=== PATIENT | female | born 1990 | race Caucasian/White ===

== ENCOUNTER 2016-05-20 11:00 | Emergency (ER) | payer OTHER ==
--- NOTE | 2016-05-20 12:27 | UC ---
Eye Complaint HPI - HPI Summary HPI Summary: R eye itching and drainage starting yesterday, minimal L eye itching today. Had drainage upon waking this morning. Denies any grinding, welding, or overhead work. No photophobia, pain, or FB sensation. Denies hx of eye surgery. - History of Current Complaint Chief Complaint: UCEye Stated Complaint: RT EYE COMPLAINT Time Seen by Provider: 05/20/16 12:03 Hx Obtained From: Patient Hx Last Menstrual Period: 05/19/16 ?: No Onset/Duration: Gradual Onset, Lasting Days Timing: Constant Severity Initially: Mild Severity Currently: Mild Location of Injury: Conjunctiva Character: Dull Aggravating Factor(s): Nothing Alleviating Factor(s): Nothing Associated Signs And Symptoms: Positive: Drainage (Clear), Drainage (Purulent). Negative: Vision Impairment Bilateral - Allergies/Home Medications Allergies/Adverse Reactions: Allergies Allergy/AdvReac Type Severity Reaction Status Date / Time seasonal Allergy Eyes Uncoded 05/20/16 11:33 Itchy/Swollen/Red/Watery Home Medications: Home Medications Desvenlafaxine (NF) [Pristiq (NF)] 50 mg PO BEDTIME 05/20/16 [History Confirmed 05/20/16] Zolpidem TAB* [Ambien*] 10 mg PO BEDTIME PRN 05/20/16 [History Confirmed ] PMH/Surg Hx/FS Hx/Imm Hx Endocrine History Of: Reports: Diabetes, Thyroid Disease Cardiovascular History Of: Reports: Hypertension Denies: Cardiac Disorders Respiratory History Of: Reports: Asthma Denies: COPD GI/ History Of: Reports: Gall Bladder Disease Denies: Ulcer Neurological History Of: Reports: Seizures Psychological History Of: Reports: Depression - Bipolar - Surgical History Surgical History: Yes Surgery Procedure, Year, and Place: PE Tubes as a child and 07/2015. Cholecystectomy, 2008, [facility] - Family History Known Family History: Positive: Unknown - PT IS ADOPTED UNSURE OF HER BIOLOGIC PARENTS MEDICAL HISTORY - Social History Occupation: Unemployed Lives: With Family Alcohol Use: None Substance Use Type: None Smoking Status (MU): Never Smoked Tobacco Review of Systems Constitutional: Negative Skin: Negative Eyes: Eye Redness ENT: Negative Respiratory: Negative Cardiovascular: Negative Gastrointestinal: Negative Genitourinary: Negative Motor: Negative Neurovascular: Negative Musculoskeletal: Negative Neurological: Negative Psychological: Negative All Other Systems Reviewed And Are Negative: Yes Physical Exam Triage Information Reviewed: Yes Appearance: Well-Appearing, No Pain Distress, Obese Vital Signs: Initial Vital Signs Temp 97.6 F 05/20/16 11:36 Pulse 77 05/20/16 11:36 Resp 18 05/20/16 11:36 BP 143/70 05/20/16 11:36 Pulse Ox 97 05/20/16 11:36 Vital Signs Reviewed: Yes Eye Exam: Other - PERRL Eyes: Positive: Conjunctiva Inflamed - R, mild ENT Exam: Normal ENT: Positive: Normal ENT inspection, Hearing grossly normal, Pharynx normal, TMs normal Dental Exam: Normal Neck exam: Normal Neck: Positive: Supple, Nontender, No Lymphadenopathy Respiratory Exam: Normal Respiratory: Positive: Chest non-tender, Lungs clear, Normal breath sounds, No respiratory distress, No accessory muscle use Cardiovascular Exam: Normal Cardiovascular: Positive: RRR, No Murmur Neurological Exam: Normal Neurological: Positive: Alert, Muscle Tone Normal Psychological Exam: Normal Skin Exam: Normal Eye Complaint Course/Dx - Differential Dx/Diagnosis Provider Diagnoses: bilat conjunctivitis Discharge - Discharge Plan Condition: Stable Disposition: HOME Prescriptions: Ciprofloxacin 0.3% OPTH.JELENA* [Cipro 0.3% Opth*] 2 drop BOTH EYES QID #10 ml Patient Education Materials: Conjunctivitis (ED) Referrals: Ankur Newsome [Primary Care Provider] - If Needed
[2016-05-20 13:57] VITALS: BP 153/87
== END 2016-05-20 12:40 | disposition home or self-care (01) ==
LOC: UCCORT 11:00
DX: H10.33 Unspecified acute conjunctivitis, bilateral (principal); E66.9 Obesity, unspecified
CPT/HCPCS: 99212; G0463

== ENCOUNTER 2016-07-23 06:15 | Emergency (ER) | payer OTHER ==
[2016-07-23 07:45] VITALS: BP 147/89
--- NOTE | 2016-07-25 18:22 | ED ---
Julio Richards Matthew, scribed for Gerson Keating MD on 07/23/16 at 0805 . Respiratory - HPI Summary HPI Summary: A 25 y/o female presents to the ED with a cough for the past 3 days. Associated symptoms include rhinorrhea - yellow sputum, sore throat, hoarse voice, and ear ache. The patient denies fever. She has a Hx of bronchitis. The patient babysat all last week. PMHx includes asthma. No Hx of smoking. The patient is not taking her diabetic or thyroid medications, because she states that she forgets. She's also taking control, which she started a week and half ago. - History of Current Complaint Chief Complaint: EDUpperRespComplaint Stated Complaint: VAG BLEED Time Seen by Provider: 07/23/16 07:18 Hx Obtained From: Patient Onset/Duration: Gradual Onset, Lasting Days, Still Present Timing: Constant Initial Severity: Mild Current Severity: Mild Pain Intensity: 0 Character: Cough (Productive) Sputum Color: Yellow Associated Signs and Symptoms: Nasal Congestion, Hoarseness - Allergy/Home Medications Allergies/Adverse Reactions: Allergies Allergy/AdvReac Type Severity Reaction Status Date / Time seasonal Allergy Eyes Uncoded 05/20/16 11:33 Itchy/Swollen/Red/Watery PMH/Surg Hx/FS Hx/Imm Hx Endocrine/Hematology History: Reports: Hx Diabetes, Hx Thyroid Disease Cardiovascular History: Reports: Hx Hypertension Respiratory History: Reports: Hx Asthma, Hx Sleep Apnea Denies: Hx Chronic Obstructive Pulmonary Disease (COPD) GI History: Reports: Hx Gall Bladder Disease Denies: Hx Ulcer Neurological History: Reports: Hx Seizures Psychiatric History: Reports: Hx Depression - Bipolar, Hx Community Mental Health Tx - Surgical History Surgery Procedure, Year, and Place: PE Tubes as a child and 07/2015. [place] [facility] [place] Disease History: No Infectious Disease History: Denies: Hx Hepatitis, Hx Human Immunodeficiency Virus (HIV), History Other Infectious Disease, Traveled Outside the [place] in Last 30 Days - Family History Known Family History: Positive: Unknown - PT IS ADOPTED UNSURE OF HER BIOLOGIC PARENTS MEDICAL HISTORY - Social History Alcohol Use: None Substance Use Type: Reports: None Smoking Status (MU): Never Smoked Tobacco Review of Systems Constitutional: Negative Negative: Fever Eyes: Negative Negative: Erythema ENT: Other - Hoarse voice Positive: Sore Throat, Ear Ache, Nasal Discharge Cardiovascular: Negative Negative: Chest Pain Positive: Cough. Negative: Shortness Of Breath Gastrointestinal: Negative Negative: Abdominal Pain, Vomiting, Diarrhea, Nausea Genitourinary: Negative Negative: dysuria, hematuria Musculoskeletal: Negative Negative: Myalgia Skin: Negative Negative: Rash Neurological: Negative Negative: Headache Psychological: Normal All Other Systems Reviewed And Are Negative: Yes Physical Exam Triage Information Reviewed: Yes Vital Signs On Initial Exam: Initial Vitals Temp Pulse Resp BP Pulse Ox 97.5 F 88 16 175/80 98 07/23/16 06:20 07/23/16 06:20 07/23/16 06:20 07/23/16 06:20 07/23/16 06:20 Vital Signs Reviewed: Yes Appearance: Positive: Well-Appearing, No Pain Distress, Obese - morbidly Skin: Positive: Warm, Dry Head/Face: Positive: Other - Normocephalic; Atraumatic Eyes: Positive: Conjunctiva Clear ENT: Positive: Nasal congestion, Nasal drainage, Other - NO sinus tenderness Dental: Negative: Cervical Lymphadenopathy Neck: Positive: No Lymphadenopathy, Other: - Full ROM; No JVD Respiratory/Lung Sounds: Positive: Other - Normal Effort; No respiratory distress. Negative: Rales, Rhonchi, Stridor, Tracheal Deviation, Wheezes Cardiovascular: Positive: RRR, Other - Rhythm regular, rate normal, Heart sounds normal; Intact distal pulses; The pedal pulses are 2+ and symmetric. Radial pulses are 2+ and symmetric. Negative: Murmur Abdomen Description: Positive: Nontender, Soft, Other: - No Rebound. Negative: Distended, Guarding Bowel Sounds: Positive: Present Musculoskeletal: Negative: Edema Left, Edema Right Neurological: Positive: Alert, Oriented to Person Place, Time Psychiatric: Positive: Affect/Mood Appropriate - Thi Coma Scale Coma Scale Total: 15 Diagnostics - Vital Signs Vital Signs Temp Pulse Resp BP Pulse Ox 07/23/16 07:07 87 96 07/23/16 07:04 154/94 07/23/16 06:20 97.5 F 88 16 175/80 98 - Laboratory Lab Statement: Any lab studies that have been ordered have been reviewed, and results considered in the medical decision making process. Disposition - Course Assessment/Plan: . A 25 y/o female presents to the ED with a cough for the past 3 days. Associated symptoms include rhinorrhea - yellow sputum, sore throat , hoarse voice, and ear ache. The patient denies fever. She has a Hx of bronchitis. The patient babysat all last week. PMHx includes asthma. No Hx of smoking. The patient will be discharged home with albuterol and prednisone. Vaginal bleeding will be addressed by her PCP as she just started control. No indication the bleeding is heavy or there is significant blood loss at this time. - Diagnoses Provider Diagnoses: Bronchitis Discharge - Discharge Plan Condition: Stable Disposition: HOME Prescriptions: Albuterol 2.5MG/3ML (0.083%)* [Ventolin 2.5 MG/3 ML NEB.JELENA*] 2.5 mg INH Q6H PRN #60 neb.jelena PRN Reason: Cough predniSONE TAB* [Deltasone TAB*] 20 mg PO DAILY #5 tab Patient Education Materials: Albuterol (By breathing), Prednisone (By mouth), Acute Bronchitis (ED) Referrals: Ankur Newsome [Primary Care Provider] - 3 Days Additional Instructions: Please follow-up with your primary care physician in 3-4 days. The documentation as recorded by the Julio leger Matthew accurately reflects the service I personally performed and the decisions made by , Gerson Keating MD.
== END 2016-07-23 08:05 | disposition home or self-care (01) ==
LOC: ED 06:15
DX: J40 Bronchitis, not specified as acute or chronic (principal); R09.81 Nasal congestion; R05 Cough
CPT/HCPCS: 99282

== ENCOUNTER 2017-05-17 19:57 | Emergency (ER) | payer OTHER ==
[2017-05-18 00:30] VITALS: BP 129/69
--- NOTE | 2017-05-18 00:41 | ED ---
Jitendra Richards Sixian, scribed for Zachary Hayes on 05/17/17 at 2141 . Complex/Multi-Sys Presentation - HPI Summary HPI Summary: This patient is a 26 year old F presenting to ED with a chief complaint of pain on the back of her head since few months ago. The patient rates the pain 6/10 in severity. Symptoms aggravated by pressing on the back of her head. Symptoms alleviated by nothing. Patient reports frequent ear infections. Patient denies any recent injuries. - History Of Current Complaint Chief Complaint: EDHeadache Time Seen by Provider: 05/17/17 21:07 Hx Obtained From: Patient Onset/Duration: Lasting Weeks, Still Present Timing: Constant, Weeks Location: Pain At: - back of her head Aggravating Factor(s): nothing Alleviating Factor(s): nothing - Allergies/Home Medications Allergies/Adverse Reactions: Allergies Allergy/AdvReac Type Severity Reaction Status Date / Time seasonal Allergy Eyes Uncoded 05/20/16 11:33 Itchy/Swollen/Red/Watery PMH/Surg Hx/FS Hx/Imm Hx Endocrine/Hematology History: Reports: Hx Diabetes, Hx Thyroid Disease Cardiovascular History: Reports: Hx Hypertension Respiratory History: Reports: Hx Asthma, Hx Sleep Apnea Denies: Hx Chronic Obstructive Pulmonary Disease (COPD) GI History: Reports: Hx Gall Bladder Disease Denies: Hx Ulcer Neurological History: Reports: Hx Seizures Psychiatric History: Reports: Hx Depression - Bipolar, Hx Community Mental Health Tx - Surgical History Surgery Procedure, Year, and Place: PE Tubes as a child and 07/2015. Cholecystectomy, 2007, [facility] Infectious Disease History: No Infectious Disease History: Denies: Hx Hepatitis, Hx Human Immunodeficiency Virus (HIV), History Other Infectious Disease, Traveled Outside the [place] in Last 30 Days - Family History Known Family History: Positive: Unknown - PT IS ADOPTED UNSURE OF HER BIOLOGIC PARENTS MEDICAL HISTORY - Social History Alcohol Use: None Substance Use Type: Reports: None, Prescribed Smoking Status (MU): Never Smoked Tobacco Review of Systems Negative: Fever Positive: Other - pain on the back of her head All Other Systems Reviewed And Are Negative: Yes Physical Exam - Summary Physical Exam Summary: Appearance: Well appearing, no pain distress, obese Skin: warm, dry, reflects adequate perfusion Head/face: Tenderness over occipital area on the back of her head Eyes: EOMI, OLIVIA ENT: normal Neck: supple, non-tender Respiratory: CTA, breath sounds present Cardiovascular: RRR, pulses symmetrical Abdomen: non-tender, soft Bowel: present Musculoskeletal: normal, strength/ROM intact Neuro: normal, sensory motor intact, A&Ox3 Triage Information Reviewed: Yes Vital Signs On Initial Exam: Initial Vitals Temp Pulse Resp BP Pulse Ox 98.6 F 96 16 142/68 96 05/17/17 20:01 05/17/17 20:01 05/17/17 20:01 05/17/17 20:01 05/17/17 20:01 Vital Signs Reviewed: Yes Diagnostics - Vital Signs Vital Signs Temp Pulse Resp BP Pulse Ox 05/17/17 20:01 98.6 F 96 16 142/68 96 - Laboratory Lab Statement: Any lab studies that have been ordered have been reviewed, and results considered in the medical decision making process. - CT Brain CT Interpretation Completed By: Radiologist - Negative. ED physician has reviewed this radiology report. Complex Multi-Symp Course/Dx Assessment/Plan: This patient is a 26 year old F presenting to ED with a chief complaint of pain on the back of her head since few months ago. Radiology included a head CT which was negative. The patient is diagnosed with a headache. The patient is instructed to follow up with primary care. - Diagnoses Differential Diagnoses/HQI/PQRI: Other - headache/intracranial bleeding Provider Diagnoses: Headache Discharge - Discharge Plan Condition: Stable Disposition: HOME Patient Education Materials: Tension Headache (ED) Referrals: Supa Tellez MD [Primary Care Provider] - 3 Days Additional Instructions: RETURN TO THE EMERGENCY DEPARTMENT FOR CHANGING OR WORSENING SYMPTOMS. The documentation as recorded by the Jitendra leger Sixian accurately reflects the service I personally performed and the decisions made by Freddy laurent Emmanuel.
--- NOTE | 2017-05-18 09:22 | RAD ---
Indication: Headaches. CT of the brain was performed without contrast. Motion artifact limits evaluation of the skull base. Ventricular structures are midline. No midline shift is noted. The extra-axial spaces are grossly unremarkable. There is no evidence of intracranial mass or hemorrhage. No other high or low density lesions are identified. Mastoid air cells and paranasal sinuses are grossly unremarkable. IMPRESSION: No intracranial mass or hemorrhage is noted. Evaluation of the skull base and posterior fossa is limited due to motion artifact.
== END 2017-05-18 00:30 | disposition home or self-care (01) ==
LOC: ED 19:57
DX: R51 Headache (principal); E11.9 Type 2 diabetes mellitus without complications; Z86.79 Personal history of other diseases of the circulatory system
CPT/HCPCS: 70450; 99282

== ENCOUNTER 2018-02-11 07:14 | Emergency (ER) | payer OTHER ==
[2018-02-11 07:29] VITALS: BP 153/89
--- NOTE | 2018-02-11 07:37 | UC ---
Respiratory Complaint HPI - HPI Summary HPI Summary: 3 DAYS OF COUGH, CHEST CONGESTION, RHINITIS, DUARTE, RIGHT EAR PAIN. DENIES WHEEZE. NO FEVER, N/V. - History of Current Complaint Chief Complaint: UCRespiratory Stated Complaint: CONGESTION, EAR PAIN Time Seen by Provider: 02/11/18 07:27 Hx Obtained From: Patient Hx Last Menstrual Period: 01/11/18 Onset/Duration: Gradual Onset, Lasting Days, Still Present Timing: Constant Severity Initially: Moderate Severity Currently: Moderate Pain Intensity: 6 Pain Scale Used: 0-10 Numeric Character: Cough: Nonproductive Aggravating Factors: Nothing Alleviating Factors: Nothing Associated Signs And Symptoms: Positive: URI, Nasal Congestion. Negative: Dyspnea, Fever, Wheezing - Allergies/Home Medications Allergies/Adverse Reactions: Allergies Allergy/AdvReac Type Severity Reaction Status Date / Time seasonal Allergy Eyes Uncoded 05/20/16 11:33 Itchy/Swollen/Red/Watery Home Medications: Home Medications traZODone TAB* [Desyrel TAB*] 100 mg PO BEDTIME 02/11/18 [History Confirmed ] PMH/Surg Hx/FS Hx/Imm Hx Endocrine History: Diabetes, Hypothyroidism Cardiovascular History: Hypertension Respiratory History: Asthma - Surgical History Surgical History: Yes Surgery Procedure, Year, and Place: PE Tubes as a child and 07/2015. Cholecystectomy, 2007, [facility] - Family History Known Family History: Positive: Unknown - PT IS ADOPTED UNSURE OF HER BIOLOGIC PARENTS MEDICAL HISTORY - Social History Alcohol Use: None Substance Use Type: None Smoking Status (MU): Never Smoked Tobacco Review of Systems All Other Systems Reviewed And Are Negative: Yes Constitutional: Positive: Fatigue ENT: Positive: Sore Throat, Ear Ache, Nasal Discharge Respiratory: Positive: Shortness Of Breath, Cough Cardiovascular: Positive: Negative Gastrointestinal: Positive: Negative Neurological: Positive: Headache Physical Exam Triage Information Reviewed: Yes Appearance: No Pain Distress, Well-Nourished, Ill-Appearing - MILD Vital Signs: Initial Vital Signs Temp 96.5 F 02/11/18 07:24 Pulse 82 02/11/18 07:24 Resp 20 02/11/18 07:24 BP 153/89 02/11/18 07:24 Pulse Ox 96 02/11/18 07:24 Vital Signs Reviewed: Yes Eyes: Positive: Conjunctiva Clear ENT: Positive: Hearing grossly normal, Pharynx normal, TMs normal - TUBE IN LEFT EAC Neck: Positive: Supple, Nontender, No Lymphadenopathy Respiratory Exam: Normal Cardiovascular Exam: Normal Abdomen Description: Positive: Soft Musculoskeletal: Positive: No Edema Neurological: Positive: Alert Psychological: Positive: Normal Response To Family, Age Appropriate Behavior Skin: Negative: Rashes UC Diagnostic Evaluation - Laboratory O2 Sat by Pulse Oximetry: 96 Respiratory Course/Dx - Differential Dx/Diagnosis Provider Diagnoses: ACUTE URI Discharge - Sign-Out/Discharge Documenting (check all that apply): Patient Departure All imaging exams completed and their final reports reviewed: No Studies - Discharge Plan Condition: Stable Disposition: HOME Prescriptions: Albuterol 2.5MG/3ML (0.083%)* [Ventolin 2.5 MG/3 ML NEB.JELENA*] 2.5 mg INH Q4H PRN #1 box PRN Reason: Wheezing Azithromycin 500 mg PO DAILY #5 tab Patient Education Materials: Upper Respiratory Infection (ED) Referrals: Supa Tellez MD [Primary Care Provider] - If Needed Additional Instructions: YOUR SYMPTOMS MAY BE VIRALLY MEDIATED BUT GIVEN YOUR COMORBIDITIES YOU ARE AT INCREASED RISK FOR BACTERIAL INFECTION. WE WILL COVER YOU WITH ANTIBIOTICS. IF YOU START THE MEDICINE BE SURE TO TAKE IT FOR THE FULL COURSE. REST, HYDRATE, OTC MEDS NEEDED. ALBUTEROL NEEDED. SEEK FOLLOW-UP WITH YOUR PCP IF YOU ARE NOT IMPROVING OVER THE NEXT 1-2 WEEKS. USE OTC AFRIN FOR NASAL CONGESTION. 2 SPRAYS IN EACH NOSTRIL TWICE DAILY NEEDED. DO NOT USE FOR MORE THAN 3-4 DAYS IN A ROW TO PREVENT DEVELOPING REBOUND CONGESTION. - Billing Disposition and Condition Condition: STABLE Disposition: Home
== END 2018-02-11 07:59 | disposition home or self-care (01) ==
LOC: UCEAST 07:14
DX: J06.9 Acute upper respiratory infection, unspecified (principal); I10 Essential (primary) hypertension; E11.9 Type 2 diabetes mellitus without complications; J45.909 Unspecified asthma, uncomplicated; Z91.048 Other nonmedicinal substance allergy status
CPT/HCPCS: 99212; G0463

== ENCOUNTER 2018-07-22 21:08 | Emergency (ER) | payer OTHER | END 2018-07-22 21:49 | disposition left against medical advice (07) | LOC: UCCORT 21:08 | DX: J00 Acute nasopharyngitis [common cold] (principal); Z53.21 Procedure and treatment not carried out due to patient leaving prior to being seen by health care provider ==

== ENCOUNTER 2018-11-08 15:56 | Emergency (ER) | payer OTHER ==
[2018-11-08 16:47] VITALS: BP 147/97
--- NOTE | 2018-11-08 17:02 | UC ---
Lower Extremity/Ankle HPI - HPI Summary HPI Summary: 28-year-old morbidly obese female who complains of right foot swelling over the past couple days. She had a similar incident a little over a month ago with the left foot and she had x-rays which are negative and then she wore a cam for a few days and that resolved the problem. - History of Current Complaint Chief Complaint: UCLowerExtremity Stated Complaint: RT FOOT PAIN Time Seen by Provider: 11/08/18 16:30 Hx Obtained From: Patient Hx Last Menstrual Period: 10/20/18 ?: No Onset/Duration: Gradual Onset Severity Initially: Mild Severity Currently: Mild Pain Intensity: 5 Aggravating Factor(s): Ambulation Alleviating Factor(s): Nothing Able to Bear Weight: Yes - Allergies/Home Medications Allergies/Adverse Reactions: Allergies Allergy/AdvReac Type Severity Reaction Status Date / Time seasonal Allergy Eyes Uncoded 11/08/18 16:48 Itchy/Swollen/Red/Watery PMH/Surg Hx/FS Hx/Imm Hx Previously Healthy: Yes Endocrine History: Diabetes Cardiovascular History: Hypertension Respiratory History: Asthma Psychological History: Anxiety - Surgical History Surgical History: Yes Surgery Procedure, Year, and Place: PE Tubes as a child and 07/2015. Cholecystectomy, 2007, [facility] - Family History Known Family History: Positive: Unknown - PT IS ADOPTED UNSURE OF HER BIOLOGIC PARENTS MEDICAL HISTORY - Social History Alcohol Use: None Substance Use Type: None Smoking Status (MU): Never Smoked Tobacco Review of Systems All Other Systems Reviewed And Are Negative: Yes Skin: Positive: Other - Right foot swelling over the dorsum, mild ankle pain. No known injury. Is Patient Immunocompromised?: No Physical Exam Triage Information Reviewed: Yes Appearance: Well-Appearing, No Pain Distress, Well-Nourished, Obese - Morbidly obese Vital Signs: Initial Vital Signs Temp 98.1 F 11/08/18 16:38 Pulse 86 11/08/18 16:38 Resp 16 11/08/18 16:38 BP 147/97 11/08/18 16:38 Pulse Ox 97 11/08/18 16:38 Vital Signs Reviewed: Yes Musculoskeletal: Positive: Strength Intact, ROM Intact, Other: - Swelling over the dorsum of the right foot with tenderness on palpation and tenderness over the lateral malleolus with no swelling. Good peripheral pulses neuro sensation and capillary refill. Nontender at the base of the first and fifth metatarsals. Achilles is intact. Neurological: Positive: Alert, Muscle Tone Normal Psychological Exam: Normal Skin Exam: Normal Lower Extremity Course/Dx - Course Course Of Treatment: Patient is comfortable here. X-rays of right ankle and foot were negative. She is to elevate as much as possible and may apply heat or ice to the area which ever feels good. She may take Tylenol for pain. Definite follow-up with the orthopedist for recheck in approximately 2 or 3 days if no improvement or if worsening symptoms. - Differential Dx/Diagnosis Provider Diagnosis: Foot pain, right, Ankle pain, right Discharge - Sign-Out/Discharge Documenting (check all that apply): Patient Departure All imaging exams completed and their final reports reviewed: Yes - Discharge Plan Condition: Fair Disposition: HOME Patient Education Materials: Foot Sprain (ED), Ankle Strain (ED) Referrals: Supa Tellez MD [Primary Care Provider] - William Ramos MD [Medical Doctor] - Additional Instructions: Elevate as much as possible, may apply ice intermittently over the next few days. Definite follow up with the orthopedist in 4-5 days if no improvement or if worsening symptoms. - Billing Disposition and Condition Condition: FAIR Disposition: Home - Attestation Statements Provider Attestation: I was available for consult. This patient was seen by the [facility]. The patient was not presented to, seen by, or examined by me. -[facility]
== END 2018-11-08 17:38 | disposition home or self-care (01) ==
LOC: UCCORT 15:56
DX: M79.671 Pain in right foot (principal); M25.571 Pain in right ankle and joints of right foot
CPT/HCPCS: 99211; G0463

== ENCOUNTER 2019-02-03 21:35 | Emergency (ER) | payer OTHER ==
--- NOTE | 2019-02-03 21:42 | UC ---
Skin Complaint HPI - HPI Summary HPI Summary: 28 yo female presents with right lower leg concerns. She tells me that over the last week she has noticed some right lower leg swelling and tenderness. Today she noticed a red area to her anteromedial lower leg that was warm, but now she states her leg feels cold to touch. She has not taken anything OTC for discomfort. Denies recent injury, recent travel, SOB, chest pain. No hx of blood clots. - History of Current Complaint Time Seen by Provider: 02/03/19 21:41 Stated Complaint: POSS CELLULITIS Hx Obtained From: Patient Hx Last Menstrual Period: 10/20/18 Onset/Duration: Gradual Onset Onset Severity: Mild Current Severity: Mild Pain Intensity: 3 Pain Scale Used: 0-10 Numeric - Allergy/Home Medications Allergies/Adverse Reactions: Allergies Allergy/AdvReac Type Severity Reaction Status Date / Time seasonal Allergy Eyes Uncoded 02/03/19 21:53 Itchy/Swollen/Red/Watery PMH/Surg Hx/FS Hx/Imm Hx Endocrine History: Diabetes, Hypothyroidism Respiratory History: Asthma - Surgical History Surgical History: Yes Surgery Procedure, Year, and Place: PE Tubes as a child and 07/2015. Cholecystectomy, 2007, [facility] - Family History Known Family History: Positive: Unknown - PT IS ADOPTED UNSURE OF HER BIOLOGIC PARENTS MEDICAL HISTORY - Social History Lives: With Family Alcohol Use: None Substance Use Type: None Smoking Status (MU): Never Smoked Tobacco Review of Systems All Other Systems Reviewed And Are Negative: No Constitutional: Positive: Negative Skin: Positive: Other - Swelling redness right leg Respiratory: Positive: Negative Cardiovascular: Positive: Negative Neurological: Positive: Negative Psychological: Positive: Negative Physical Exam - Summary Physical Exam Summary: Exam limited by body habitus GENERAL: NAD. SKIN: RIGHT LOWER LEG: Faint erythema at proximal medial aspect. No warmth, coldness, open wound, or streaking. CHEST: No accessory muscle use. Breathing comfortably and in no distress. CV: Pulses intact PT and DP. Cap refill <2seconds MSK: RIGHT LOWER LEG: NTTP. FROM to right knee and ankle. Negative Lizeth sign NEURO: Alert. Sensations intact and symmetric B/L LEs PSYCH: Age appropriate behavior. Triage Information Reviewed: Yes Vital Signs: Vital Signs: Temp Pulse Resp BP Pulse Ox 97.1 F 86 20 169/101 97 02/03/19 21:48 02/03/19 21:48 02/03/19 21:48 02/03/19 21:48 02/03/19 21:48 Vital Signs Reviewed: Yes Course/Dx - Course Course Of Treatment: Discussed with Dr. Shelton - agrees no cellulitis. Recommend going to ER for ? DVT. Discussed with pt and she is agreeable to this - Diagnoses Provider Diagnosis: Leg pain Discharge ED - Sign-Out/Discharge Documenting (check all that apply): Patient Departure All imaging exams completed and their final reports reviewed: No Studies - Discharge Plan Condition: Stable Disposition: HOME-RECOMMEND TO ED Referrals: Supa Tellez MD [Primary Care Provider] - Additional Instructions: I recommend that you go to the ER for further evaluation of your right lower leg pain and swelling - Billing Disposition and Condition Condition: STABLE Disposition: Home-Recommend to ED
--- OUTSIDE RECORDS SUMMARY | 2019-02-03 21:43 | XMS REPORT | Continuity of Care Document ---
:1990 External Reference #:[id number] Author Name Supa Tellez M.D. Address [address] [facility] [address] [place] [address] Care Team Providers Name Role Phone Supa Tellez MD - Family Medicine Care Team Information Special Education Paraeducator [phone] Problems Active Problems Provider Date Essential hypertension Ruth Alejandro FNP Onset: 11/18/2013 Asthma without status asthmaticus Supa Tellez M.D. Onset: 05/06/2012 Hypothyroidism Ruth Alejandro FNP Onset: 12/13/2013 Polycystic ovaries Supa Tellez M.D. Onset: 05/06/2012 Morbid obesity Supa Tellez M.D. Onset: 05/06/2012 Osteoarthritis Supa Tellez M.D. Onset: 05/06/2012 Malaise and fatigue Supa Tellez M.D. Onset: 05/06/2012 Non-organic sleep disorder Ankur Vargas Onset: 08/06/2012 Seasonal allergy Ruth Alejandro FNP Onset: 01/27/2014 Environmental allergy Ruth Alejandro FNP Onset: 01/27/2014 Edema Supa Tellez M.D. Onset: 04/01/2014 Peripheral venous insufficiency Supa Tellez M.D. Onset: 04/01/2014 Pain in limb Supa Tellez M.D. Onset: 04/01/2014 Dyspnea Supa Tellez M.D. Onset: 04/01/2014 Insomnia Supa Tellez M.D. Onset: 04/01/2014 Exacerbation of asthma Supa Tellez M.D. Onset: 04/01/2014 Benign essential hypertension Supa Tellez M.D. Onset: 04/01/2014 Allergic rhinitis Supa Tellez M.D. Onset: 04/01/2014 Idiopathic peripheral neuropathy Supa Tellez M.D. Onset: 04/01/2014 Depressive disorder Supa Tellez M.D. Onset: 04/01/2014 Anxiety state Supa Tellez M.D. Onset: 04/01/2014 Anxiety state Supa Tellez M.D. Onset: 03/14/2015 Social History Type Date Description Comments Sex Unknown Tobacco Use Start: Unknown Never Smoked Cigarettes ETOH Use Rarely consumes alcohol Tobacco Use Start: Unknown Patient has never smoked Smoking Status Reviewed: 04/01/17 Patient has never smoked Enjoy Exercising Does not enjoy exercising Allergies, Adverse Reactions, Alerts Description No Known Drug Allergies Medications Active Medications SIG Qnty Indications Ordering Date Provider Walker [place] use as directed( 1units R26.89 Supa Tellez, 12/18/2018 Wheels/5 Adjustment walker with M.D. Holes/-8" wheels,brakes and 1-04/01" basket) dx: r26.89 Misc need to be able to suppoet 500 lb Cetirizine HCL Take One Tablet By 30tabs J30.9 Supa Tellez, 08/27/2018 10mg Mouth Every Day M.D. Tablets Airduo Respiclick 1 by mouth twice a 1units J45.909 Supa Tellez, 07/25 232/14 day M.D. 232-14mcg/Act Aerosol Flonase Allergy 1 intranasal puff 47.400ml J30.9 Supa Tellez, 2018 Relief twice a day M.D. 50mcg/Act Suspension True Metrix Blood Test Before Meals 100units E11.65 Supa Tellez, 06/30 Glucosetest Strips And AT Bedtime And M.D. as Needed Strips Previfem Take One Tablet By 28tabs N92.0 [facility]alma Arizmendi, 06/23/2018 Mouth Every Day M.D. 0.25-35mg-mcg Tablets N85.00 Sumatriptan Succinate take one tablet 14tabs G43.009 [facility]alma Arizmendi, 100mg by mouth twice a M.D. Tablets day as needed Prednisolone Acetate 2 drop both ears 10ml H92.03 [facility]alma Varun, 2018 1% twice a day as M.D. Suspension needed Desvenlafaxine Succinate 1 tab by mouth 60tabs F41.9 [facility]alma Arizmendi, 11/2018 ER twice a day M.D. 50mg Tablets ER 24HR F33.9 Trazodone HCL Take 1-2 Tablets By 60tabs G47.00 [facility]alma Arizmendi, 2017 150mg Mouth AT Bedtime M.D. Tablets F41.9 Freestyle 28G Lancets Test FS Before 100units [facility] 09/23/2017 Meals And AT M., M.D. Bedtime as Needed True Metrix Meter FS Qac And hs And 1units E11.65 [facility] 06/01/2017 w/Device prn M., M.D. Kit Freestyle Lancets fs every before 100units E11.65 [facility] 05/03/2017 [facility] meals and at M., M.D. bedtime as needed Cpap Mask use q hs 1units G47.30 [facility]alma 11/05/2016 M., M.D. Metformin HCL ER 1 tab by mouth 90tabs E11.65 [facility] 10/30/2016 750mg every evening M., M.D. Tablets ER 24HR Levothyroxine Sodium Take One Tablet By 30tabs E03.9 [facility] 2016 25mcg Mouth Every Day M., M.D. Tablets Levothyroxine Sodium Take One Tablet By 30tabs E03.9 GeoffSupa garcia 2016 125mcg Mouth Every Day M., M.D. Tablets Nebulizer use with nebulizer 3units J45.909 GeoffSupa garcia 07/27/2016 Kit/Tubing/Mouthpiece every 4 hours as M., M.D. Kit needed E11.65 Freestyle Lite Test Test Before Meals 100units E11.65 GeoffSupa garcia, 02/2016 And AT Bedtime M.D. Strip Vitamin D3 1 by mouth every day E55.9 GeoffSupa garcia, 05/31/2015 74346Ahao M.D. Capsules Lisinopril-Hydrochlor take two tablets by 60tabs I10 GeoffSupa garcia, othiazide mouth every morning M.D. 20-25mg Tablets Albuterol Sulfate Inhale The Contents 75units J45.909 GeoffSupa garcia, 06/2013 Of One Vial Via M.D. (2.5mg/3ML) 0.083% Nebulizer Every 4 Nebulizer Hours as Needed Ibuprofen 1 tab by mouth every 120tabs GeoffSupa garcia, 08/05/2013 800mg Tablets 6-8 hours with food M.D. as needed for pain Furosemide Take 1+1/2 Tablets 45tabs R60.0 GeoffSupa garcia, 04/20/2013 20mg Tablets By Mouth Daily M.D. I10 Ventolin HFA 2 puff by mouth 2units J45.909 GeoffSupa garcia, 04/01/2013 108(90Base) every 4 hours as M.D. mcg/Act Aerosol needed Ultrafine Lancets use three times a 100units E11.9 Supa Tellez, 2012 day M.D. Accuchek Glucose use tid before 1units E11.9 GeoffuSpa garcia, 04/30/2012 Monitor meals M.D. History Medications Prednisone 2 tab by mouth 8tabs GeoffSupa carpio 10/14/2018 - 20mg Tablets daily 4 days M., M.D. 10/17/2018 Prednisone 2 tab by mouth 8tabs [facility] 10/10/2018 - 20mg Tablets daily 4 days M., M.D. 10/13/2018 Azithromycin 1 by mouth 5tabs J20.9 [facility] 10/09/2018 - 500mg every day M., M.D. 10/13/2018 Tablets Cephalexin 1 tabs by 30tabs J20.9 [facility] 10/02/2018 - 500mg mouth three M., M.D. 10/08/2018 Tablets times a day Amoxicillin 2 by mouth 40tabs J20.9 [facility] 08/12/2018 - 500mg twice a day M., M.D. 08/22/2018 Tablets Sulfamethoxazole/Trim 1 by mouth 20tabs J20.9 [facility] 07/24/2018 - ethoprim DS twice a day M., M.D. 08/02/2018 800-160mg Tablets Breo Ellipta 1 by mouth 60units J45.909 [facility] 07/24/2018 - every day M., M.D. 07/25/2018 200-25mcg/Inh Aerosol Prednisone 2 tab by mouth 8tabs J20.9 [facility] 07/24/2018 - 20mg Tablets daily 4 days M., M.D. 07/27/2018 Amoxicillin 2 by mouth 40tabs J20.9 [facility] 07/10/2018 - 500mg twice a day M., M.D. 07/20/2018 Tablets 461.9 466.0 Medications Administered in Office Medication SIG Qnty Indications Ordering Provider Date Solu-Medrol 125MG Supa Tellez M.D. 07/27/2016 Injection Rocephin 250 Supa Tellez M.D. 07/27/2016 Injection Immunizations CPT Code Status Date Vaccine Lot # [id number] Refused 01/12/2014 Flu Vaccine Vital Signs Date Vital Result Comment 01/01/2019 2:23pm BP Systolic 142 mmHg BP Diastolic 70 mmHg Height 67 inches 5'7" Weight 504.00 lb BMI (Body Mass Index) 78.9 kg/m2 Heart Rate 102 /min Respiratory Rate 18 /min 12/18/2018 8:43am BP Systolic 128 mmHg BP Diastolic 72 mmHg Height 67 inches 5'7" Heart Rate 87 /min Respiratory Rate 18 /min Results Test Date Facility Test Result H/L Range Note CBC With Diff 11/19/2018 [facility] [place] WBC 5.1 10*3/uL (4.1-11.0) 113 PRI[facility] [address]REWS (607)- - RBC 4.41 10*6/uL (4.00-5.40) HGB 11.5 g/dL Low (12.0-16.0) HCT 36.1 % (36.0-47.0) MCV 81.9 fL (80.0-95.0) MCH 26.1 pg Low (27.0-32.0) MCHC 31.8 g/dL Low (32.0-36.0) RDW 15.8 % High (10.5-14.5) PLT 168 10*3/uL (150-450) MPV 9.8 fL (7.1-10.7) Neut % 64.3 % (35.0-75.0) Lymph % 27.5 % (16.0-52.0) [place] % 6.4 % (0.0-8.0) Eos % 1.3 % (0.0-5.0) Baso % 0.5 % (0.0-4.0) Neut # 3.3 10*3/uL (1.8-7.7) Lymph # 1.4 10*3/uL (1.2-4.8) [place] # 0.3 10*3/uL (0.0-0.8) Eos # 0.1 10*3/uL (0.0-0.5) Baso # 0.0 10*3/uL (0.0-0.2) CMP 11/19/2018 [facility] [place] Sodium 141 mmol/L (136-145) [address]REWS (607)- - Potassium 4.4 mmol/L (3.6-5.2) Chloride 105 mmol/L (100-108) Co2 30 mmol/L (22-31) Anion Gap 6 mmol/L Low (7-16) Urea Nitrogen 15 mg/dL (7-24) Creatinine 1.02 mg/dL High (0.60-1.00) BUN/Creat Ratio 14.7 RATIO (10.0-20.0) Glucose 111 mg/dL High (70-99) Calcium 9.1 mg/dL (8.4-10.2) Total Protein 6.3 g/dL Low (6.4-8.2) Albumin 3.1 g/dL Low (3.5-4.6) Globulin 3.2 g/dL (2.7-4.3) Alb/Glob Ratio 1.0 RATIO Alkaline Phosphatase 73 U/L (45-117) Bilirubin,Total 0.2 mg/dL (0.0-1.0) Ast (Sgot) 14 U/L (11-39) Alt (SGPT) 24 U/L (12-78) GFR >60 ml/min/1.73m2 (>59) GFR ( Amer) >60 ml/min/1.73m2 (>59) GFR Interpretation <SEE NOTE> 1 Hemoglobin A1c 11/19/2018 [facility] Hemoglobin A1c @ 6.9 % High (4.0- 6.0) 2 113 Disrupt6 (321)- - Est Average Glucose 151 mg/dL Lipid 11/19/2018 [facility] Cholesterol @ 151 mg/dL (0-200) 113 Disrupt6 (605)- - Triglyceride @ 151 mg/dL (30-200) HDL Cholesterol @ 44 mg/dL (>40) 3 Chol/HDL Ratio 3.4 RATIO 4 LDL Chol (Calc) 77 mg/dL (<130) 5 Laboratory 11/19/2018 [facility] TSH,Ultrasensitive @ 6.740 High (0.360 -4.170) test finding 113 [facility] JULIANA mIU/L (605)- - Free Thyroxine @ 1.17 ng/dL (0.76-1.46) Iron Panel 11/19/2018 [facility] Iron,Total @ 43 g/dL (35-150) 113 Disrupt6 (609)- - Uibc @ 318 g/dL (130-375) Tibc @ 361 g/dL (250-450) % Saturation 12 % (12-50) Laboratory test 11/19/2018 [facility] 25 Hydroxy 37 ng/mL (31-100) 6 finding 113 Disrupt6 Vit D @ (607)- - Blood Culture 07/23/2018 [place] Blood Culture NO GROWTH: 7, 8 Aerobic FINAL <SEE NOTE> Blood Culture Anaerobic NO GROWTH: FINAL <SEE NOTE> 9 Lactic Acid 07/23/2018 [place] Lactic Acid 1.7 mmol/L Normal 0.4-1.9 Lab Reflex >2.0 for Sepsis? Y CBS W/Automated Diff 07/23/2018 [place] White Blood Count 8.6 K/uL Normal 3.1-10.7 Red Blood Count 4.46 M/uL Normal 3.90-5.40 Hemoglobin 12.0 gm/dL Normal 11.6-15.8 Hematocrit 38.1 % Normal 36.0-46.1 Mean Cell Volume 85.4 fl Normal 80.9-99.0 Mean Corpuscular HGB 26.9 pg Normal 25.9-32.7 Mean Corpuscular HGB Conc 31.5 g/dL Normal 30.8-34.3 Platelet Count 231 K/uL Normal 155-360 Red Cell Distri Width SD 43.8 fl Normal 36-47 Red Cell Distri Width %CV 14.1 % Normal 11.7-14.4 Mean Platelet Volume 11.9 fl Normal 8.9-12.4 Neut% 79.3 % High 40.4-72.8 Lymph % 14.3 % Low 20.0-42.0 Madison % 4.1 % Low 4.3-13.2 Eo% 1.5 % Normal 0.0-6.6 Bas% 0.5 % Normal 0.0-1.1 Immature Grans 0.3 % Normal 0.0-5.0 NRBC % 0.0 /100WBC < 10/ 100 WBC Neut# 6.82 K/uL Normal 1.8-7.0 Lymph # 1.23 K/uL Normal 1.0-4.0 Madison # 0.35 K/uL Normal 0.3-0.9 Eos # 0.13 K/uL Normal 0.0-0.5 Baso # 0.04 K/uL Normal 0.0-0.1 Immature Grans Absolute 0.03 K/uL NRBC # 0.00 K/uL Blood Culture 07/23/2018 [facility] Blood Culture Aerobic NO GROWTH: FINAL < SEE 10 NOTE> Blood Culture Anaerobic NO GROWTH: FINAL <SEE NOTE> 11 Urinalysis With Microscopic 07/23/2018 [place] Urine Color YELLOW Yellow Urine Clarity SL CLOUDY Clear Urine Glucose - Dipstick NEGATIVE mg/dL Negative Urine Bilirubin - Dipstick NEGATIVE Negative Urine Ketone TRACE mg/dL High Negative Urine Specific [place] 1.025 Normal 1.010-1.030 Urine Blood NEGATIVE Negative Urine PH 6.5 Normal 6.5-7.5 Urine Protein - Dipstick NEGATIVE mg/dL Negative Urine Urobilinogen - Dipstick 0.2 E.U./dL Normal 0.2-1.0 Urine Nitrite - Dipstick NEGATIVE Negative Urine Leuk Esterase SMALL Abnormal Negative Urine RBC NONE SEEN rbc/hpf 0-2 Urine WBC 0-2 wbc/hpf 0-7 Urine Epithelial Cells MODERATE /lpf None Seen 12 Urine Bacteria FEW None Seen Source: URINE, CLEAN CAT <SEE NOTE> 13 1 NORMAL KIDNEY FUNCTION OR MILD DISEASE - GFR >OR= 60 CHRONIC KIDNEY DISEASE - GFR 15 - 59 RENAL FAILURE - GFR <15 Est. GFR calculation based on the MDRD study equation, which assumes a steady state for creatinine. Est. GFR should not be used for medication dosing. 2 Performed using Haier immunoassay. Care must be taken when interpreting HbA1c results in patients with a hemoglobin variant or decreased erythrocyte lifespan. Values 5.7 - 6.4% suggest prediabetes. Values >=6.5% are diagnostic for diabetes. REFERENCE: DIABETES CARE 2018: 41(S13-S27). 3 PER NCEP ATP III GUIDELINES: RESULTS LOWER THAN 40 MG/DL ARE SUGGESTIVE OF INCREASED RISK FOR CORONARY ARTERY DISEASE. RESULTS > OR = TO 60 MG/DL ARE CONSIDERED A NEGATIVE RISK FACTOR. 4 INTERPRETATION OF CHOL-HDL RATIO CHD RISK FEMALE MALE VERY HIGH >8.3 >14.3 HIGH 5.6- 8.3 6.7- 14.3 AVERAGE 3.7- 5.6 4.0- 6.7 BELOW AVERAGE 2.5- 3.7 2.7- 4.0 PROTECTED <2.5 <2.7 5 PER NCEP ATP III GUIDELINES: OPTIMAL < 100 NEAR OPTIMAL 100 - 129 BORDERLINE HIGH 130 - 159 HIGH 160 - 189 VERY HIGH > 189 6 A REVIEW OF THE LITERATURE SUGGESTS THE FOLLOWING RANGES FOR THE CLASSIFICATION OF 25-OH VITAMIN D STATUS: VITAMIN D STATUS 25-OH VITAMIN D DEFICIENCY <20 NG/ML INSUFFICIENCY 20-30 NG/ML SUFFICIENCY 31 - 100 NG/ML TOXICITY > 100 NG/ML A PEDIATRIC REFERENCE RANGE HAS NOT BEEN ESTABLISHED USING THIS METHOD. 7 SEVERE COUGH, COUGH RELATED CHEST PAIN 8 NO GROWTH: FINAL REPORT 9 NO GROWTH: FINAL REPORT 10 NO GROWTH: FINAL REPORT 11 NO GROWTH: FINAL REPORT 12 POSSIBLE UROGENITAL CONTAMINATION. 13 URINE, CLEAN CATCH Procedures Date Code Description Status 10/09/2018 76845 Spirometry Completed 10/09/2018 31010 Tympanometry Completed 10/02/2018 96343 Spirometry Completed 10/02/2018 65644 Tympanometry Completed 08/12/2018 19231 Spirometry Completed 08/12/2018 45265 Tympanometry Completed 07/24/2018 00695 Spirometry Completed 07/24/2018 70426 Tympanometry Completed 07/10/2018 33360 Spirometry Completed 07/10/2018 08122 Tympanometry Completed Medical Devices Description No Information Available Encounters Type Date Location Provider Dx Diagnosis Office Visit 01/01/2019 [facility] Supa Tellez, E11.65 Type 2 diabetes 2:30p M.D. mellitus with hyperglycemia E78.2 Mixed hyperlipidemia E03.9 Hypothyroidism, unspecified G47.00 Insomnia, unspecified D50.9 Iron deficiency anemia, unspecified F41.9 Anxiety disorder, unspecified J30.9 Allergic rhinitis, unspecified L20.9 Atopic dermatitis, unspecified E55.9 Vitamin D deficiency, unspecified E28.2 Polycystic ovarian syndrome R60.0 Localized edema I87.2 Venous insufficiency (chronic) (peripheral) M79.606 Pain in leg, unspecified R53.83 Other fatigue M15.9 Polyosteoarthritis, unspecified H52.13 Myopia, bilateral F33.9 Major depressive disorder, recurrent, unspecified N92.0 Excessive and frequent menstruation with regular cycle N85.00 Endometrial hyperplasia, unspecified J45.909 Unspecified asthma, uncomplicated K31.84 Gastroparesis R56.9 Unspecified convulsions E66.01 Morbid (severe) obesity due to excess calories M54.5 Low back pain N39.8 Other specified disorders of urinary system B00.2 Herpesviral gingivostomatitis and pharyngotonsillitis H92.03 Otalgia, bilateral G43.009 Migraine w/o aura, not intractable, w/o status migrainosus J20.9 Acute bronchitis, unspecified J01.40 Acute pansinusitis, unspecified H66.93 Otitis media, unspecified, bilateral R06.02 Shortness of breath R05 Cough R09.81 Nasal congestion M25.572 Pain in left ankle and joints of left foot R26.89 Other abnormalities of gait and mobility Office Visit 12/18/2018 10:45a [place] [facility] Geoff Inezalma E11.65 Type 2 diabetes Simona Arizmendi mellitus with hyperglycemia E78.2 Mixed hyperlipidemia E03.9 Hypothyroidism, unspecified G47.00 Insomnia, unspecified D50.9 Iron deficiency anemia, unspecified F41.9 Anxiety disorder, unspecified J30.9 Allergic rhinitis, unspecified L20.9 Atopic dermatitis, unspecified E55.9 Vitamin D deficiency, unspecified E28.2 Polycystic ovarian syndrome R60.0 Localized edema I87.2 Venous insufficiency (chronic) (peripheral) M79.606 Pain in leg, unspecified R53.83 Other fatigue M15.9 Polyosteoarthritis, unspecified H52.13 Myopia, bilateral F33.9 Major depressive disorder, recurrent, unspecified N92.0 Excessive and frequent menstruation with regular cycle N85.00 Endometrial hyperplasia, unspecified J45.909 Unspecified asthma, uncomplicated K31.84 Gastroparesis R56.9 Unspecified convulsions E66.01 Morbid (severe) obesity due to excess calories M54.5 Low back pain N39.8 Other specified disorders of urinary system B00.2 Herpesviral gingivostomatitis and pharyngotonsillitis H92.03 Otalgia, bilateral G43.009 Migraine w/o aura, not intractable, w/o status migrainosus J20.9 Acute bronchitis, unspecified J01.40 Acute pansinusitis, unspecified H66.93 Otitis media, unspecified, bilateral R06.02 Shortness of breath R05 Cough R09.81 Nasal congestion M25.572 Pain in left ankle and joints of left foot R26.89 Other abnormalities of gait and mobility Office Visit 11/19/2018 10:15a [place] [facility] GeoffSupa garcia E11.65 Type 2 diabetes Simona Arizmendi mellitus with hyperglycemia E78.2 Mixed hyperlipidemia E03.9 Hypothyroidism, unspecified G47.00 Insomnia, unspecified D50.9 Iron deficiency anemia, unspecified F41.9 Anxiety disorder, unspecified J30.9 Allergic rhinitis, unspecified L20.9 Atopic dermatitis, unspecified E55.9 Vitamin D deficiency, unspecified E28.2 Polycystic ovarian syndrome R60.0 Localized edema I87.2 Venous insufficiency (chronic) (peripheral) M79.606 Pain in leg, unspecified R53.83 Other fatigue M15.9 Polyosteoarthritis, unspecified H52.13 Myopia, bilateral F33.9 Major depressive disorder, recurrent, unspecified N92.0 Excessive and frequent menstruation with regular cycle N85.00 Endometrial hyperplasia, unspecified J45.909 Unspecified asthma, uncomplicated K31.84 Gastroparesis R56.9 Unspecified convulsions E66.01 Morbid (severe) obesity due to excess calories M54.5 Low back pain N39.8 Other specified disorders of urinary system B00.2 Herpesviral gingivostomatitis and pharyngotonsillitis H92.03 Otalgia, bilateral G43.009 Migraine w/o aura, not intractable, w/o status migrainosus J20.9 Acute bronchitis, unspecified J01.40 Acute pansinusitis, unspecified H66.93 Otitis media, unspecified, bilateral R06.02 Shortness of breath R05 Cough R09.81 Nasal congestion M25.572 Pain in left ankle and joints of left foot Office Visit 10/09/2018 10:30a [place] [facility] GeoffInez garciad E11.65 Type 2 diabetes Simona Arizmendi mellitus with hyperglycemia E78.2 Mixed hyperlipidemia E03.9 Hypothyroidism, unspecified G47.00 Insomnia, unspecified D50.9 Iron deficiency anemia, unspecified F41.9 Anxiety disorder, unspecified J30.9 Allergic rhinitis, unspecified L20.9 Atopic dermatitis, unspecified E55.9 Vitamin D deficiency, unspecified E28.2 Polycystic ovarian syndrome R60.0 Localized edema I87.2 Venous insufficiency (chronic) (peripheral) M79.606 Pain in leg, unspecified R53.83 Other fatigue M15.9 Polyosteoarthritis, unspecified H52.13 Myopia, bilateral F33.9 Major depressive disorder, recurrent, unspecified N92.0 Excessive and frequent menstruation with regular cycle N85.00 Endometrial hyperplasia, unspecified J45.909 Unspecified asthma, uncomplicated K31.84 Gastroparesis R56.9 Unspecified convulsions E66.01 Morbid (severe) obesity due to excess calories M54.5 Low back pain N39.8 Other specified disorders of urinary system B00.2 Herpesviral gingivostomatitis and pharyngotonsillitis H92.03 Otalgia, bilateral G43.009 Migraine w/o aura, not intractable, w/o status migrainosus J20.9 Acute bronchitis, unspecified J01.40 Acute pansinusitis, unspecified H66.93 Otitis media, unspecified, bilateral R06.02 Shortness of breath R05 Cough R09.81 Nasal congestion M25.572 Pain in left ankle and joints of left foot Office Visit 10/02/2018 8:45a [place] [facility] Geoff, Inezalma E11.65 Type 2 diabetes Simona Arizmendi mellitus with hyperglycemia E78.2 Mixed hyperlipidemia E03.9 Hypothyroidism, unspecified G47.00 Insomnia, unspecified D50.9 Iron deficiency anemia, unspecified F41.9 Anxiety disorder, unspecified J30.9 Allergic rhinitis, unspecified L20.9 Atopic dermatitis, unspecified E55.9 Vitamin D deficiency, unspecified E28.2 Polycystic ovarian syndrome R60.0 Localized edema I87.2 Venous insufficiency (chronic) (peripheral) M79.606 Pain in leg, unspecified R53.83 Other fatigue M15.9 Polyosteoarthritis, unspecified H52.13 Myopia, bilateral F33.9 Major depressive disorder, recurrent, unspecified N92.0 Excessive and frequent menstruation with regular cycle N85.00 Endometrial hyperplasia, unspecified J45.909 Unspecified asthma, uncomplicated K31.84 Gastroparesis R56.9 Unspecified convulsions E66.01 Morbid (severe) obesity due to excess calories M54.5 Low back pain N39.8 Other specified disorders of urinary system B00.2 Herpesviral gingivostomatitis and pharyngotonsillitis H92.03 Otalgia, bilateral G43.009 Migraine w/o aura, not intractable, w/o status migrainosus D69.2 Other nonthrombocytopenic purpura J20.9 Acute bronchitis, unspecified J01.40 Acute pansinusitis, unspecified H66.93 Otitis media, unspecified, bilateral R06.02 Shortness of breath R05 Cough R09.81 Nasal congestion M25.572 Pain in left ankle and joints of left foot Office Visit 08/12/2018 8:30a [place] [facility] Supa Tellez E11.65 Type 2 diabetes Simona Arizmendi mellitus with hyperglycemia E78.2 Mixed hyperlipidemia E03.9 Hypothyroidism, unspecified G47.00 Insomnia, unspecified D50.9 Iron deficiency anemia, unspecified F41.9 Anxiety disorder, unspecified J30.9 Allergic rhinitis, unspecified L20.9 Atopic dermatitis, unspecified E55.9 Vitamin D deficiency, unspecified E28.2 Polycystic ovarian syndrome R60.0 Localized edema I87.2 Venous insufficiency (chronic) (peripheral) M79.606 Pain in leg, unspecified R53.83 Other fatigue M15.9 Polyosteoarthritis, unspecified H52.13 Myopia, bilateral F33.9 Major depressive disorder, recurrent, unspecified N92.0 Excessive and frequent menstruation with regular cycle N85.00 Endometrial hyperplasia, unspecified J45.909 Unspecified asthma, uncomplicated K31.84 Gastroparesis R56.9 Unspecified convulsions E66.01 Morbid (severe) obesity due to excess calories M54.5 Low back pain N39.8 Other specified disorders of urinary system B00.2 Herpesviral gingivostomatitis and pharyngotonsillitis H92.03 Otalgia, bilateral G43.009 Migraine w/o aura, not intractable, w/o status migrainosus D69.2 Other nonthrombocytopenic purpura J20.9 Acute bronchitis, unspecified J01.40 Acute pansinusitis, unspecified H66.93 Otitis media, unspecified, bilateral R06.02 Shortness of breath R05 Cough R09.81 Nasal congestion Office Visit 07/24/2018 10:15a [place] [facility] Inez Tellezd E11.65 Type 2 diabetes Simona Arizmendi mellitus with hyperglycemia E78.2 Mixed hyperlipidemia E03.9 Hypothyroidism, unspecified G47.00 Insomnia, unspecified D50.9 Iron deficiency anemia, unspecified F41.9 Anxiety disorder, unspecified J30.9 Allergic rhinitis, unspecified L20.9 Atopic dermatitis, unspecified E55.9 Vitamin D deficiency, unspecified E28.2 Polycystic ovarian syndrome R60.0 Localized edema I87.2 Venous insufficiency (chronic) (peripheral) M79.606 Pain in leg, unspecified R53.83 Other fatigue M15.9 Polyosteoarthritis, unspecified H52.13 Myopia, bilateral F33.9 Major depressive disorder, recurrent, unspecified N92.0 Excessive and frequent menstruation with regular cycle N85.00 Endometrial hyperplasia, unspecified J45.909 Unspecified asthma, uncomplicated K31.84 Gastroparesis R56.9 Unspecified convulsions E66.01 Morbid (severe) obesity due to excess calories M54.5 Low back pain N39.8 Other specified disorders of urinary system B00.2 Herpesviral gingivostomatitis and pharyngotonsillitis H92.03 Otalgia, bilateral G43.009 Migraine w/o aura, not intractable, w/o status migrainosus D69.2 Other nonthrombocytopenic purpura J20.9 Acute bronchitis, unspecified J01.40 Acute pansinusitis, unspecified H66.93 Otitis media, unspecified, bilateral R06.02 Shortness of breath R05 Cough R09.81 Nasal congestion Office Visit 07/10/2018 4:45p [place] [facility], [place] E11.65 Type 2 diabetes Simona Arizmendi mellitus with hyperglycemia E78.2 Mixed hyperlipidemia E03.9 Hypothyroidism, unspecified G47.00 Insomnia, unspecified D50.9 Iron deficiency anemia, unspecified F41.9 Anxiety disorder, unspecified J30.9 Allergic rhinitis, unspecified L20.9 Atopic dermatitis, unspecified E55.9 Vitamin D deficiency, unspecified E28.2 Polycystic ovarian syndrome R60.0 Localized edema I87.2 Venous insufficiency (chronic) (peripheral) M79.606 Pain in leg, unspecified R53.83 Other fatigue M15.9 Polyosteoarthritis, unspecified H52.13 Myopia, bilateral F33.9 Major depressive disorder, recurrent, unspecified N92.0 Excessive and frequent menstruation with regular cycle N85.00 Endometrial hyperplasia, unspecified J45.909 Unspecified asthma, uncomplicated K31.84 Gastroparesis R56.9 Unspecified convulsions E66.01 Morbid (severe) obesity due to excess calories M54.5 Low back pain N39.8 Other specified disorders of urinary system B00.2 Herpesviral gingivostomatitis and pharyngotonsillitis H92.03 Otalgia, bilateral G43.009 Migraine w/o aura, not intractable, w/o status migrainosus D69.2 Other nonthrombocytopenic purpura J20.9 Acute bronchitis, unspecified J01.40 Acute pansinusitis, unspecified H66.93 Otitis media, unspecified, bilateral R06.02 Shortness of breath R05 Cough R09.81 Nasal congestion Assessments Date Code Description Provider 01/01/2019 E11.65 Type 2 diabetes mellitus with hyperglycemia Supa Tellez M.D. 01/01/2019 E78.2 Mixed hyperlipidemia Supa Tellez M.D. 01/01/2019 E03.9 Hypothyroidism, unspecified Supa Tellez M.D. 01/01/2019 G47.00 Insomnia, unspecified Supa Tellez M.D. 01/01/2019 D50.9 Iron deficiency anemia, unspecified Supa Tellez M.D. 01/01/2019 F41.9 Anxiety disorder, unspecified Supa Tellez M.D. 01/01/2019 J30.9 Allergic rhinitis, unspecified Supa Tellez M.D. 01/01/2019 L20.9 Atopic dermatitis, unspecified Supa Tellez M.D. 01/01/2019 E55.9 Vitamin D deficiency, unspecified Supa Tellez M.D. 01/01/2019 E28.2 Polycystic ovarian syndrome Supa Tellez M.D. 01/01/2019 R60.0 Localized edema Supa Tellez M.D. 01/01/2019 I87.2 Venous insufficiency (chronic) (peripheral) Supa Tellez M.D. 01/01/2019 M79.606 Pain in leg, unspecified Supa Tellez M.D. 01/01/2019 R53.83 Other fatigue Supa Tellez M.D. 01/01/2019 M15.9 Polyosteoarthritis, unspecified Supa Tellez M.D. 01/01/2019 H52.13 Myopia, bilateral Supa Tellez M.D. 01/01/2019 F33.9 Major depressive disorder, recurrent, Supa Tellez M.D. unspecified 01/01/2019 N92.0 Excessive and frequent menstruation with Supa Tellez M.D. regular cycle 01/01/2019 N85.00 Endometrial hyperplasia, unspecified Supa Tellez M.D. 01/01/2019 J45.909 Unspecified asthma, uncomplicated Supa Tellez M.D. 01/01/2019 K31.84 Gastroparesis Supa Tellez M.D. 01/01/2019 R56.9 Unspecified convulsions Supa Tellez M.D. 01/01/2019 E66.01 Morbid (severe) obesity due to excess Supa Tellez M.D. calories 01/01/2019 M54.5 Low back pain Supa Tellez M.D. 01/01/2019 N39.8 Other specified disorders of urinary system Supa Tellez M.D. 01/01/2019 B00.2 Herpesviral gingivostomatitis and Supa Tellez M.D. pharyngotonsillitis 01/01/2019 H92.03 Otalgia, bilateral Supa Tellez M.D. 01/01/2019 G43.009 Migraine without aura, not intractable, Supa Tellez M.D. without status migrainosus 01/01/2019 J20.9 Acute bronchitis, unspecified Supa Tellez M.D. 01/01/2019 J01.40 Acute pansinusitis, unspecified Supa Tellez M.D. 01/01/2019 H66.93 Otitis media, unspecified, bilateral Supa Tellez M.D. 01/01/2019 R06.02 Shortness of breath Supa Tellez M.D. 01/01/2019 R05 Cough Supa Tellez M.D. 01/01/2019 R09.81 Nasal congestion Supa Tellez M.D. 01/01/2019 M25.572 Pain in left ankle and joints of left foot Supa Tellez M.D. 01/01/2019 R26.89 Other abnormalities of gait and mobility Supa Tellez M.D. 12/18/2018 E11.65 Type 2 diabetes mellitus with hyperglycemia Supa Tellez M.D. 12/18/2018 E78.2 Mixed hyperlipidemia Supa Tellez M.D. 12/18/2018 E03.9 Hypothyroidism, unspecified Supa Tellez M.D. 12/18/2018 G47.00 Insomnia, unspecified Supa Tellez M.D. 12/18/2018 D50.9 Iron deficiency anemia, unspecified Supa Tellez M.D. 12/18/2018 F41.9 Anxiety disorder, unspecified Supa Tellez M.D. 12/18/2018 J30.9 Allergic rhinitis, unspecified Supa Tellez M.D. 12/18/2018 L20.9 Atopic dermatitis, unspecified Supa Tellez M.D. 12/18/2018 E55.9 Vitamin D deficiency, unspecified Supa Tellez M.D. 12/18/2018 E28.2 Polycystic ovarian syndrome Supa Tellez M.D. 12/18/2018 R60.0 Localized edema Supa Tellez M.D. 12/18/2018 I87.2 Venous insufficiency (chronic) (peripheral) Supa Tellez M.D. 12/18/2018 M79.606 Pain in leg, unspecified Supa Tellez M.D. 12/18/2018 R53.83 Other fatigue Supa Tellez M.D. 12/18/2018 M15.9 Polyosteoarthritis, unspecified Supa Tellez M.D. 12/18/2018 H52.13 Myopia, bilateral Supa Tellez M.D. 12/18/2018 F33.9 Major depressive disorder, recurrent, Supa Tellez M.D. unspecified 12/18/2018 N92.0 Excessive and frequent menstruation with Supa Tellez M.D. regular cycle 12/18/2018 N85.00 Endometrial hyperplasia, unspecified Supa Tellez M.D. 12/18/2018 J45.909 Unspecified asthma, uncomplicated Supa Tellez M.D. 12/18/2018 K31.84 Gastroparesis Supa Tellez M.D. 12/18/2018 R56.9 Unspecified convulsions Supa Tellez M.D. 12/18/2018 E66.01 Morbid (severe) obesity due to excess Supa Tellez M.D. calories 12/18/2018 M54.5 Low back pain Supa Tellez M.D. 12/18/2018 N39.8 Other specified disorders of urinary system Supa Tellez M.D. 12/18/2018 B00.2 Herpesviral gingivostomatitis and Supa Tellez M.D. pharyngotonsillitis 12/18/2018 H92.03 Otalgia, bilateral GeoffSupa carpio M.D. 12/18/2018 G43.009 Migraine without aura, not intractable, Supa Tellez M.D. without status migrainosus 12/18/2018 J20.9 Acute bronchitis, unspecified Supa Tellez M.D. 12/18/2018 J01.40 Acute pansinusitis, unspecified Supa Tellez M.D. 12/18/2018 H66.93 Otitis media, unspecified, bilateral Supa Tellez M.D. 12/18/2018 R06.02 Shortness of breath Supa Tellez M.D. 12/18/2018 R05 Cough Supa Tellez M.D. 12/18/2018 R09.81 Nasal congestion Supa Tellez M.D. 12/18/2018 M25.572 Pain in left ankle and joints of left foot Supa Tellez M.D. 12/18/2018 R26.89 Other abnormalities of gait and mobility Supa Tellez M.D. 11/19/2018 E11.65 Type 2 diabetes mellitus with hyperglycemia Supa Tellez M.D. 11/19/2018 E78.2 Mixed hyperlipidemia Supa Tellez M.D. 11/19/2018 E03.9 Hypothyroidism, unspecified Supa Tellez M.D. 11/19/2018 G47.00 Insomnia, unspecified Supa Tellez M.D. 11/19/2018 D50.9 Iron deficiency anemia, unspecified Supa Tellez M.D. 11/19/2018 F41.9 Anxiety disorder, unspecified Supa Tellez M.D. 11/19/2018 J30.9 Allergic rhinitis, unspecified Supa Tellez M.D. 11/19/2018 L20.9 Atopic dermatitis, unspecified Supa Tellez M.D. 11/19/2018 E55.9 Vitamin D deficiency, unspecified Geoff, Ahmad M., M.D. 11/19/2018 E28.2 Polycystic ovarian syndrome Supa Tellez M.D. 11/19/2018 R60.0 Localized edema Supa Tellez M.D. 11/19/2018 I87.2 Venous insufficiency (chronic) (peripheral) Supa Tellez M.D. 11/19/2018 M79.606 Pain in leg, unspecified Supa Tellez M.D. 11/19/2018 R53.83 Other fatigue Supa Tellez M.D. 11/19/2018 M15.9 Polyosteoarthritis, unspecified Supa Tellez M.D. 11/19/2018 H52.13 Myopia, bilateral Supa Tellez M.D. 11/19/2018 F33.9 Major depressive disorder, recurrent, Supa Tellez M.D. unspecified 11/19/2018 N92.0 Excessive and frequent menstruation with Supa Tellez M.D. regular cycle 11/19/2018 N85.00 Endometrial hyperplasia, unspecified Supa Tellez M.D. 11/19/2018 J45.909 Unspecified asthma, uncomplicated Supa Tellez M.D. 11/19/2018 K31.84 Gastroparesis Supa Tellez M.D. 11/19/2018 R56.9 Unspecified convulsions Supa Tellez M.D. 11/19/2018 E66.01 Morbid (severe) obesity due to excess Supa Tellez M.D. calories 11/19/2018 M54.5 Low back pain Supa Tellez M.D. 11/19/2018 N39.8 Other specified disorders of urinary system Supa Tellez M.D. 11/19/2018 B00.2 Herpesviral gingivostomatitis and Supa Tellez M.D. pharyngotonsillitis 11/19/2018 H92.03 Otalgia, bilateral Supa Tellez M.D. 11/19/2018 G43.009 Migraine without aura, not intractable, Supa Tellez M.D. without status migra 11/19/2018 J20.9 Acute bronchitis, unspecified Supa Tellez M.D. 11/19/2018 J01.40 Acute pansinusitis, unspecified Supa Tellez M.D. 11/19/2018 H66.93 Otitis media, unspecified, bilateral Supa Tellez M.D. 11/19/2018 R06.02 Shortness of breath Supa Tellez M.D. 11/19/2018 R05 Cough Supa Tellez M.D. 11/19/2018 R09.81 Nasal congestion Supa Tellez M.D. 11/19/2018 M25.572 Pain in left ankle and joints of left foot Supa Tellez M.D. 10/09/2018 E11.65 Type 2 diabetes mellitus with hyperglycemia Supa Tellez M.D. 10/09/2018 E78.2 Mixed hyperlipidemia Supa Tellez M.D. 10/09/2018 E03.9 Hypothyroidism, unspecified Supa Tellez M.D. 10/09/2018 G47.00 Insomnia, unspecified Supa Tellez M.D. 10/09/2018 D50.9 Iron deficiency anemia, unspecified Supa Tellez M.D. 10/09/2018 F41.9 Anxiety disorder, unspecified Supa Tellez M.D. 10/09/2018 J30.9 Allergic rhinitis, unspecified Supa Tellez M.D. 10/09/2018 L20.9 Atopic dermatitis, unspecified Supa Tellez M.D. 10/09/2018 E55.9 Vitamin D deficiency, unspecified Supa Tellez M.D. 10/09/2018 E28.2 Polycystic ovarian syndrome Supa Tellez M.D. 10/09/2018 R60.0 Localized edema Supa Tellez M.D. 10/09/2018 I87.2 Venous insufficiency (chronic) (peripheral) Supa Tellez M.D. 10/09/2018 M79.606 Pain in leg, unspecified Supa eTllez M.D. 10/09/2018 R53.83 Other fatigue Supa Tellez M.D. 10/09/2018 M15.9 Polyosteoarthritis, unspecified Supa Tellez M.D. 10/09/2018 H52.13 Myopia, bilateral Supa Tellez M.D. 10/09/2018 F33.9 Major depressive disorder, recurrent, Supa Tellez M.D. unspecified 10/09/2018 N92.0 Excessive and frequent menstruation with Supa Tellez M.D. regular cycle 10/09/2018 N85.00 Endometrial hyperplasia, unspecified Supa Tellez M.D. 10/09/2018 J45.909 Unspecified asthma, uncomplicated Supa Tellez M.D. 10/09/2018 K31.84 Gastroparesis Supa Tellez M.D. 10/09/2018 R56.9 Unspecified convulsions Supa Tellez M.D. 10/09/2018 E66.01 Morbid (severe) obesity due to excess Supa Tellez M.D. calories 10/09/2018 M54.5 Low back pain Supa Tellez M.D. 10/09/2018 N39.8 Other specified disorders of urinary system Supa Tellez M.D. 10/09/2018 B00.2 Herpesviral gingivostomatitis and Supa Tellez M.D. pharyngotonsillitis 10/09/2018 H92.03 Otalgia, bilateral Supa Tellez M.D. 10/09/2018 G43.009 Migraine without aura, not intractable, Supa Tellez M.D. without status migra 10/09/2018 J20.9 Acute bronchitis, unspecified Supa Tellez M.D. 10/09/2018 J01.40 Acute pansinusitis, unspecified Supa Tellez M.D. 10/09/2018 H66.93 Otitis media, unspecified, bilateral Supa Tellez M.D. 10/09/2018 R06.02 Shortness of breath Supa Tellez M.D. 10/09/2018 R05 Cough Supa Tellez M.D. 10/09/2018 R09.81 Nasal congestion Supa Tellez M.D. 10/09/2018 M25.572 Pain in left ankle and joints of left foot Supa Tellez M.D. 10/02/2018 E11.65 Type 2 diabetes mellitus with hyperglycemia Supa Tellez M.D. 10/02/2018 E78.2 Mixed hyperlipidemia Supa Tellez M.D. 10/02/2018 E03.9 Hypothyroidism, unspecified Supa Tellez M.D. 10/02/2018 G47.00 Insomnia, unspecified Supa Tellez M.D. 10/02/2018 D50.9 Iron deficiency anemia, unspecified Supa Tellez M.D. 10/02/2018 F41.9 Anxiety disorder, unspecified Supa Tellez M.D. 10/02/2018 J30.9 Allergic rhinitis, unspecified Supa Tellez M.D. 10/02/2018 L20.9 Atopic dermatitis, unspecified Supa Tellez M.D. 10/02/2018 E55.9 Vitamin D deficiency, unspecified Supa Tellez M.D. 10/02/2018 E28.2 Polycystic ovarian syndrome Supa Tellez M.D. 10/02/2018 R60.0 Localized edema Supa Tellez M.D. 10/02/2018 I87.2 Venous insufficiency (chronic) (peripheral) Supa Tellez M.D. 10/02/2018 M79.606 Pain in leg, unspecified Supa Tellez M.D. 10/02/2018 R53.83 Other fatigue Supa Tellez M.D. 10/02/2018 M15.9 Polyosteoarthritis, unspecified Supa Tellez M.D. 10/02/2018 H52.13 Myopia, bilateral Supa Tellez M.D. 10/02/2018 F33.9 Major depressive disorder, recurrent, Supa Tellez M.D. unspecified 10/02/2018 N92.0 Excessive and frequent menstruation with Supa Tellez M.D. regular cycle 10/02/2018 N85.00 Endometrial hyperplasia, unspecified Supa Tellez M.D. 10/02/2018 J45.909 Unspecified asthma, uncomplicated Supa Tellez M.D. 10/02/2018 K31.84 Gastroparesis Supa Tellez M.D. 10/02/2018 R56.9 Unspecified convulsions Supa Tellez M.D. 10/02/2018 E66.01 Morbid (severe) obesity due to excess Supa Tellez M.D. calories 10/02/2018 M54.5 Low back pain Supa Tellez M.D. 10/02/2018 N39.8 Other specified disorders of urinary system Supa Tellez M.D. 10/02/2018 B00.2 Herpesviral gingivostomatitis and Supa Tellez M.D. pharyngotonsillitis 10/02/2018 H92.03 Otalgia, bilateral Supa Tellez M.D. 10/02/2018 G43.009 Migraine without aura, not intractable, Supa Tellez M.D. without status migra 10/02/2018 D69.2 Other nonthrombocytopenic purpura Supa Tellez M.D. 10/02/2018 J20.9 Acute bronchitis, unspecified Supa Tellez M.D. 10/02/2018 J01.40 Acute pansinusitis, unspecified Supa Tellez M.D. 10/02/2018 H66.93 Otitis media, unspecified, bilateral Supa Tellez M.D. 10/02/2018 R06.02 Shortness of breath Supa Tellez M.D. 10/02/2018 R05 Cough Supa Tellez M.D. 10/02/2018 R09.81 Nasal congestion Supa Tellez M.D. 10/02/2018 M25.572 Pain in left ankle and joints of left foot Supa Tellez M.D. 08/12/2018 E11.65 Type 2 diabetes mellitus with hyperglycemia Supa Tellez M.D. 08/12/2018 E78.2 Mixed hyperlipidemia Supa Tellez M.D. 08/12/2018 E03.9 Hypothyroidism, unspecified Supa Tellez M.D. 08/12/2018 G47.00 Insomnia, unspecified Supa Tellez M.D. 08/12/2018 D50.9 Iron deficiency anemia, unspecified Supa Tellez M.D. 08/12/2018 F41.9 Anxiety disorder, unspecified Supa Tellez M.D. 08/12/2018 J30.9 Allergic rhinitis, unspecified Supa Tellez M.D. 08/12/2018 L20.9 Atopic dermatitis, unspecified GeoffSupa carpio M.D. 08/12/2018 E55.9 Vitamin D deficiency, unspecified Supa Tellez M.D. 08/12/2018 E28.2 Polycystic ovarian syndrome Supa Tellez M.D. 08/12/2018 R60.0 Localized edema Supa Tellez M.D. 08/12/2018 I87.2 Venous insufficiency (chronic) (peripheral) Supa Tellez M.D. 08/12/2018 M79.606 Pain in leg, unspecified Supa Tellez M.D. 08/12/2018 R53.83 Other fatigue Supa Tellez M.D. 08/12/2018 M15.9 Polyosteoarthritis, unspecified Supa Tellez M.D. 08/12/2018 H52.13 Myopia, bilateral Supa Tellez M.D. 08/12/2018 F33.9 Major depressive disorder, recurrent, Supa Tellez M.D. unspecified 08/12/2018 N92.0 Excessive and frequent menstruation with Supa Tellez M.D. regular cycle 08/12/2018 N85.00 Endometrial hyperplasia, unspecified Supa Tellez M.D. 08/12/2018 J45.909 Unspecified asthma, uncomplicated Supa Tellez M.D. 08/12/2018 K31.84 Gastroparesis Supa Tellez M.D. 08/12/2018 R56.9 Unspecified convulsions Supa Tellez M.D. 08/12/2018 E66.01 Morbid (severe) obesity due to excess Supa Tellez M.D. calories 08/12/2018 M54.5 Low back pain Supa Tellez M.D. 08/12/2018 N39.8 Other specified disorders of urinary system Supa Tellez M.D. 08/12/2018 B00.2 Herpesviral gingivostomatitis and Supa Tellez M.D. pharyngotonsillitis 08/12/2018 H92.03 Otalgia, bilateral Supa Tellez M.D. 08/12/2018 G43.009 Migraine without aura, not intractable, Supa Tellez M.D. without status migra 08/12/2018 D69.2 Other nonthrombocytopenic purpura Supa Tellez M.D. 08/12/2018 J20.9 Acute bronchitis, unspecified Supa Tellez M.D. 08/12/2018 J01.40 Acute pansinusitis, unspecified Supa Tellez M.D. 08/12/2018 H66.93 Otitis media, unspecified, bilateral Supa Tellez M.D. 08/12/2018 R06.02 Shortness of breath Supa Tellez M.D. 08/12/2018 R05 Cough Supa Tellez M.D. 08/12/2018 R09.81 Nasal congestion Supa Tellez M.D. 07/24/2018 E11.65 Type 2 diabetes mellitus with hyperglycemia Supa Tellez M.D. 07/24/2018 E78.2 Mixed hyperlipidemia Supa Tellez M.D. 07/24/2018 E03.9 Hypothyroidism, unspecified Supa Tellez M.D. 07/24/2018 G47.00 Insomnia, unspecified Supa Tellez M.D. 07/24/2018 D50.9 Iron deficiency anemia, unspecified Supa Tellez M.D. 07/24/2018 F41.9 Anxiety disorder, unspecified Supa Tellez M.D. 07/24/2018 J30.9 Allergic rhinitis, unspecified Supa Tellez M.D. 07/24/2018 L20.9 Atopic dermatitis, unspecified Supa Tellez M.D. 07/24/2018 E55.9 Vitamin D deficiency, unspecified Supa Tellez M.D. 07/24/2018 E28.2 Polycystic ovarian syndrome Supa Tellez M.D. 07/24/2018 R60.0 Localized edema Supa Tellez M.D. 07/24/2018 I87.2 Venous insufficiency (chronic) (peripheral) Supa Tellez M.D. 07/24/2018 M79.606 Pain in leg, unspecified Supa Tellez M.D. 07/24/2018 R53.83 Other fatigue Supa Tellez M.D. 07/24/2018 M15.9 Polyosteoarthritis, unspecified Supa Tellez M.D. 07/24/2018 H52.13 Myopia, bilateral Supa Tellez M.D. 07/24/2018 F33.9 Major depressive disorder, recurrent, Supa Tellez M.D. unspecified 07/24/2018 N92.0 Excessive and frequent menstruation with Supa Tellez M.D. regular cycle 07/24/2018 N85.00 Endometrial hyperplasia, unspecified Supa Tellez M.D. 07/24/2018 J45.909 Unspecified asthma, uncomplicated Supa Tellez M.D. 07/24/2018 K31.84 Gastroparesis Supa Tellez M.D. 07/24/2018 R56.9 Unspecified convulsions Supa Tellez M.D. 07/24/2018 E66.01 Morbid (severe) obesity due to excess Supa Tellez M.D. calories 07/24/2018 M54.5 Low back pain Supa Tellez M.D. 07/24/2018 N39.8 Other specified disorders of urinary system Supa Tellez M.D. 07/24/2018 B00.2 Herpesviral gingivostomatitis and Supa Tellez M.D. pharyngotonsillitis 07/24/2018 H92.03 Otalgia, bilateral Supa Tellez M.D. 07/24/2018 G43.009 Migraine without aura, not intractable, Supa Tellez M.D. without status migra 07/24/2018 D69.2 Other nonthrombocytopenic purpura Supa Tellez M.D. 07/24/2018 J20.9 Acute bronchitis, unspecified Supa Tellez M.D. 07/24/2018 J01.40 Acute pansinusitis, unspecified Supa Tellez M.D. 07/24/2018 H66.93 Otitis media, unspecified, bilateral Supa Tellez M.D. 07/24/2018 R06.02 Shortness of breath Supa Tellez M.D. 07/24/2018 R05 Cough Supa Tellez M.D. 07/24/2018 R09.81 Nasal congestion Supa Tellez M.D. 07/10/2018 E11.65 Type 2 diabetes mellitus with hyperglycemia Supa Tellez M.D. 07/10/2018 E78.2 Mixed hyperlipidemia Supa Tellez M.D. 07/10/2018 E03.9 Hypothyroidism, unspecified Supa Tellez M.D. 07/10/2018 G47.00 Insomnia, unspecified Supa Tellez M.D. 07/10/2018 D50.9 Iron deficiency anemia, unspecified Supa Tellez M.D. 07/10/2018 F41.9 Anxiety disorder, unspecified Supa Tellez M.D. 07/10/2018 J30.9 Allergic rhinitis, unspecified Supa Tellez M.D. 07/10/2018 L20.9 Atopic dermatitis, unspecified Supa Tellez M.D. 07/10/2018 E55.9 Vitamin D deficiency, unspecified Supa Tellez M.D. 07/10/2018 E28.2 Polycystic ovarian syndrome Supa Tellez M.D. 07/10/2018 R60.0 Localized edema Supa Tellez M.D. 07/10/2018 I87.2 Venous insufficiency (chronic) (peripheral) Supa Tellez M.D. 07/10/2018 M79.606 Pain in leg, unspecified Supa Tellez M.D. 07/10/2018 R53.83 Other fatigue Supa Tellez M.D. 07/10/2018 M15.9 Polyosteoarthritis, unspecified Supa Tellez M.D. 07/10/2018 H52.13 Myopia, bilateral Supa Tellez M.D. 07/10/2018 F33.9 Major depressive disorder, recurrent, Supa Tellez M.D. unspecified 07/10/2018 N92.0 Excessive and frequent menstruation with Supa Tellez M.D. regular cycle 07/10/2018 N85.00 Endometrial hyperplasia, unspecified Supa Tellez M.D. 07/10/2018 J45.909 Unspecified asthma, uncomplicated Supa Tellez M.D. 07/10/2018 K31.84 Gastroparesis Supa Tellez M.D. 07/10/2018 R56.9 Unspecified convulsions Supa Tellez M.D. 07/10/2018 E66.01 Morbid (severe) obesity due to excess Supa Tellez M.D. calories 07/10/2018 M54.5 Low back pain Supa Tellez M.D. 07/10/2018 N39.8 Other specified disorders of urinary system Supa Tellez M.D. 07/10/2018 B00.2 Herpesviral gingivostomatitis and Supa Tellez M.D. pharyngotonsillitis 07/10/2018 H92.03 Otalgia, bilateral Supa Tellez M.D. 07/10/2018 G43.009 Migraine without aura, not intractable, Supa Tellez M.D. without status migra 07/10/2018 D69.2 Other nonthrombocytopenic purpura Supa Tellez M.D. 07/10/2018 J20.9 Acute bronchitis, unspecified Supa Tellez M.D. 07/10/2018 J01.40 Acute pansinusitis, unspecified Supa Tellez M.D. 07/10/2018 H66.93 Otitis media, unspecified, bilateral Supa Tellez M.D. 07/10/2018 R06.02 Shortness of breath Supa Tellez M.D. 07/10/2018 R05 Cough Supa Tellez M.D. 07/10/2018 R09.81 Nasal congestion Supa Tellez M.D. Plan of Treatment 01/01/2019 - Supa Tellez M.D.E11.65 Type 2 diabetes mellitus with hyperglycemiaComments:DIET REVIEWED CONTINUE DIETWT LOSSFS qAC AND HS PRN F/U FBWFollow up:2 weeks.E78.2 Mixed hyperlipidemiaComments:DIET REVIEWED CONTINUE DIETWT LOSSF/U LAB FBWE03.9 Hypothyroidism, unspecifiedComments:RX REVIEWED AND UPDATEDF/U TSH/ FT4G47.00 Insomnia, unspecifiedComments:COUNCELLING AND REASSURANCE RELAXATION TECHNIQUES DISCUSSED COUNSELED RE: STRESSORS IN LIFE TYLENOLPM OR MOTRIN PM PRN DUR BHWVYGHQ30.9 Iron deficiency anemia, unspecifiedComments:DIET SPPLEMENTIRON SUPPLEMENT NEEDEDF/U LABF41.9 Anxiety disorder, unspecifiedComments:COUNCELLING AND REASSURANCE RELAXATION TECHNIQUES DISCUSSEDCOUNSELED RE: STRESSORS IN LIFE AVOID ALL ENERGY/HIGH CAFFEINE BZISERI95.9 Allergic rhinitis, unspecifiedComments:INCREASE PO FLUID USE ANTIHISTAMINE PRN SECOND HAND SMOKING TNYZMHXKGU27.9 Atopic dermatitis, unspecifiedComments:SKIN CARE INSTRUCTIONS LOTION OR BABY OIL 2-3 APPLICATION PER DAYUSE MOISTURIZING SOAPAVOID PROLONGED WATER EXPOSUREAVOID USING HOT WATER IN LFEGGQG72.9 Vitamin D deficiency, unspecifiedComments:INCREASE EXPOSURE TO SUNREVIEW OF DIETE28.2 Polycystic ovarian syndromeComments:F/U WITH OB/GYNR60.0 Localized edemaComments:ELEVATE LE PRNELASTIC STOCKING / MAURICE WRAP PRNF/U LAB SBWIIDF22.2 Venous insufficiency (chronic) (peripheral)Comments:ELEVATE LEPRESSURE STOCKINGWT LOSS NEEDED F/U LABM79.606 Pain in leg, unspecifiedComments:TYLENOL OR MOTRIN PRN EXERCISE/HEAT/JCIBKTNA38.83 Other fatigueComments:INCRFEASE PO FLUIDCOUNCELLING AND REASSURANCE RESTM15.9 Polyosteoarthritis, unspecifiedComments:EXERCISE/HEAT/MESSAGETYLENOL OR MOTRIN PRNAVOID HEAVY LIFTINGWT LOSSH52.13 Myopia, bilateralComments:USE GLASSES/ CONTACTSF/U WITH PLHJOAXGAYVHCO01.9 Major depressive disorder, recurrent, unspecifiedComments:COUNCELLING AND REASSURANCE RELAXATION TECHNIQUES DISCUSSED COUNSELED RE: STRESSORS IN LIFEN92.0 Excessive and frequent menstruation with regular cycleComments:OBSERVEF/U WITH ADJUNCT PROFESSOR OF ENGLISH PRNN85.00 Endometrial hyperplasia, unspecifiedComments:F/U WITH OB/GYNJ45.909 Unspecified asthma, uncomplicatedComments:MDI / NEBULIZER TX PRN AVOID EXPOSURE TO SMOKING OR NCJAPE16.84 GastroparesisComments:CONTINUE SGFKERZXHCMA41.9 Unspecified convulsionsComments:F/U WITH NEUROLOGY PRNSAFETY AYBXYNH65.01 Morbid (severe) obesity due to excess caloriesComments:WT LOSS COUNCELLINGEXERCISEDIET COUNCILLING EXTENSIVE TEACHING ON SURGICAL [place] KXPGKZDJ89.5 Low back painComments:EXERCISE/HEAT /MESSAGEAVOID HEAVY LIFTING WT LOSSTYLENOL OR MOTRIN PRNN39.8 Other specified disorders of urinary systemComments:OBSERVEINCREASE PO DCQZBV88.2 Herpesviral gingivostomatitis and pharyngotonsillitisComments: ALQEXXTADNTEI52.03 Otalgia, bilateralComments:INCREASE PO FLUIDTYLENOL OR MOTRIN PRNANTIHISTAMINE WOUODJNR44.009 Migraine without aura, not intractable, without status migrainosusComments:TYLENOL OR MOTRIN PRNRELAXATION/AVOID EVYQJZVCTB23.9 Acute bronchitis, unspecifiedComments:YPXKBQHJV86.40 Acute pansinusitis, unspecifiedComments:MNVNIFSNV48.93 Otitis media, unspecified, bilateralComments:UJQUWLSSR99.02 Shortness of breathComments:INCREASE PO [id number] CoughComments:INCREASE CLEAR LIQUIDSSTEAMGARGLE WARM SALT H2O TID ROBITUSSIN DM PRNR09.81 Nasal congestionComments:INCREASE PO FLUIDTYLENOL OR MOTRIN PRNREST USE ANTIHISTAMINE PRNM25.572 Pain in left ankle and joints of left footComments:EXERCISE/HEAT/MESSAGETYLENOL OR MOTRIN PRNACE WRAP PRN USE SHOES INSERTS/ KRJIWMZG60.89 Other abnormalities of gait and mobilityComments: SAFETY CLEAR PATH @ HOMEAVOID USE OF LOOSE RUGSUSE CANE /WALKER NEEDEDPROVIDE ADEQUATE LIGHT @ HOMEUSE WELL FITTED SHOESCONSIDER USE OF REMOTE CALLING DEVICEARRANGE FOR REGURAL CHECK UP BY FAMILY ORFRIENDS USE ROLLING WALKER Functional Status Functional Condition Comment Date Status Glasses Active Mental Status Description No Information Available Referrals Refer to Reason for Referral Status Appt Date Ricco Cardona Sent 104 [facility] [address] [place] [address] [phone]
--- OUTSIDE RECORDS SUMMARY | 2019-02-03 21:44 | XMS REPORT | Continuity of Care Document ---
:1990 External Reference #:[id number] Demographics Address [address] [place] [address] Home Phone [phone] Mobile Phone [phone] Preferred Language en Marital Status Not or Mu-Ism Affiliation Unknown Race White Ethnic Group Not or Author Name Supa Tellez M.D. 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 Onset: 04/01/2014 Peripheral venous insufficiency Supa [...] SIG Qnty Indications Ordering Date Provider Walker Cochran use as directed( 1units R26.89 Supa Tellez, 12/18/2018 Wheels/5 Adjustment walker with M.D. Holes/-04/01" wheels,brakes and -04/01" basket) dx: r26.89 Misc need to be able to suppoet 500 lb Cetirizine HCL Take One Tablet By 30tabs J30.9 Supa Tellez, 08/27/2018 10mg Mouth Every Day M.D. Tablets Airduo Respiclick 1 by mouth twice a 1units J45.909 Supa Tellez, 07/25 232/14 day M.D. 232-14mcg/Act Aerosol Flonase Allergy 1 intranasal puff 47.400ml J30.9 Spua Tellez, 2018 Relief twice a day M.D. 50mcg/Act Suspension True Metrix Blood Test Before Meals 100units E11.65 Supa Tellez, 06/30 Glucosetest Strips And AT Bedtime And M.D. as Needed Strips Previfem Take One Tablet By 28tabs N92.0 [facility] 06/23/2018 Mouth Every Day M.D. 0.25-35mg-mcg Tablets N85.00 Sumatriptan Succinate take one tablet 14tabs G43.009 [facility] 100mg by mouth twice a M.D. Tablets day as needed Prednisolone Acetate 2 drop both ears 10ml H92.03 [facility] 2018 1% twice a day as M.D. Suspension needed Desvenlafaxine Succinate 1 tab by mouth 60tabs F41.9 [facility] 11/2018 ER twice a day M.D. 50mg Tablets ER 24HR F33.9 Trazodone HCL Take 1-2 Tablets By 60tabs G47.00 [facility] Varun, 2017 150mg Mouth AT Bedtime M.D. Tablets F41.9 Freestyle 28G Lancets Test FS Before 100units [facility] 09/23/2017 Meals And AT M., M.D. Bedtime as Needed True Metrix Meter FS Qac And hs And 1units E11.65 [facility] 06/01/2017 w/Device prn M., M.D. Kit Freestyle Lancets fs every before 100units E11.65 [facility] 05/03/2017 [facility] meals and at M., M.D. bedtime as needed Cpap Mask use q hs 1units G47.30 [facility] 11/05/2016 M., M.D. Metformin HCL ER 1 tab by mouth 90tabs E11.65 [facility] 10/30/2016 750mg every evening M., M.D. Tablets ER 24HR Levothyroxine Sodium Take One Tablet By 30tabs E03.9 [facility] 2016 25mcg Mouth Every Day M., M.D. Tablets Levothyroxine Sodium Take One Tablet By 30tabs E03.9 Supa Tellez 2016 125mcg Mouth Every Day M., M.D. Tablets Nebulizer use with nebulizer 3units J45.909 Geoff, ulises 07/27/2016 Kit/Tubing/Mouthpiece every 4 hours as M., M.D. Kit needed E11.65 Freestyle Lite Test Test Before Meals 100units E11.65 GeoffSupa garcia, 02/2016 And AT Bedtime M.D. Strip Vitamin D3 1 by mouth every day E55.9 GeoffSupa garcia, 05/31/2015 [id number] M.D. Capsules Lisinopril-Hydrochlor take two tablets by [...] pain Furosemide Take 1+1/2 Tablets 45tabs R60.0 Geoff, ulises Arizmendi, 04/20/2013 20mg Tablets By Mouth Daily M.D. I10 Ventolin HFA 2 puff by mouth 2units J45.909 Geoff, ulises Arizmendi, 04/01/2013 108(90Base) every 4 hours as M.D. mcg/Act Aerosol needed Ultrafine Lancets use three times a 100units E11.9 Supa Tellez, 2012 day M.D. Accuchek Glucose use tid before 1units E11.9 GeoffSupa garcia, 04/30/2012 Monitor meals M.D. History Medications Prednisone 2 tab by mouth 8tabs Supa Tellez 10/14/2018 - 20mg Tablets daily 4 days M., M.D. 10/17/2018 Prednisone 2 tab by mouth 8tabs Geoff [facility] 10/10/2018 - 20mg Tablets daily 4 days M., M.D. 10/13/2018 Azithromycin 1 by mouth 5tabs J20.9 [facility], [facility] 10/09/2018 - 500mg every day M., M.D. 10/13/2018 Tablets Cephalexin 1 tabs by 30tabs J20.9 [facility], [facility] 10/02/2018 - 500mg mouth three M., M.D. 10/08/2018 Tablets times a day Amoxicillin 2 by mouth 40tabs J20.9 [facility], [facility] 08/12/2018 - 500mg twice a day M., M.D. 08/22/2018 Tablets Sulfamethoxazole/Trim 1 by mouth 20tabs J20.9 [facility], [facility] 07/24/2018 - ethoprim DS twice a day M., M.D. 08/02/2018 800-160mg Tablets Breo Ellipta 1 by mouth 60units J45.909 [facility] 07/24/2018 - every day M., M.D. 07/25/2018 200-25mcg/Inh Aerosol Prednisone 2 tab by mouth 8tabs J20.9 [facility], [facility] 07/24/2018 - 20mg Tablets daily 4 days M., M.D. 07/27/2018 Amoxicillin 2 by mouth 40tabs J20.9 [facility], [facility] 07/10/2018 - 500mg twice a day M., M.D. 07/20/2018 Tablets 461.9 466.0 Medications Administered in Office Medication SIG Qnty Indications Ordering Provider Date Solu-Medrol 125MG Supa Tellez M.D. 07/27/2016 Injection Rocephin 250 Supa Tellez M.D. 07/27/2016 Injection Immunizations CPT Code Status Date Vaccine Lot # [id number] Refused 01/12/2014 Flu Vaccine Vital Signs Date Vital Result Comment 12/18/2018 8:43am BP Systolic 128 mmHg BP Diastolic 72 mmHg Height 67 inches 5'7" Heart Rate 87 /min Respiratory Rate 18 /min 11/19/2018 9:33am BP Systolic 118 mmHg BP Diastolic 64 mmHg Height 67 inches 5'7" Weight 480.00 lb BMI (Body Mass Index) 75.2 kg/m2 Heart Rate 89 /min Respiratory Rate 16 /min Results Test Date Facility Test Result H/L Range Note CBC With Diff 11/19/2018 [facility] WBC 5.1 10*3/uL (4.1-11.0) 113 PRIYA ANDREWS (607)- - RBC 4.41 10*6/uL (4.00-5.40) HGB 11.5 g/dL Low (12.0-16.0) HCT 36.1 % (36.0-47.0) MCV 81.9 fL (80.0-95.0) MCH 26.1 pg Low (27.0-32.0) MCHC 31.8 g/dL Low (32.0-36.0) RDW 15.8 % High (10.5-14.5) PLT 168 10*3/uL (150-450) MPV 9.8 fL (7.1-10.7) Neut % 64.3 % (35.0-75.0) Lymph % 27.5 % (16.0-52.0) [place] % 6.4 % (0.0-8.0) Eos % 1.3 % (0.0-5.0) Baso % 0.5 % (0.0-4.0) Neut # 3.3 10*3/uL (1.8-7.7) Lymph # 1.4 10*3/uL (1.2-4.8) [place] # 0.3 10*3/uL (0.0-0.8) Eos # 0.1 10*3/uL (0.0-0.5) Baso # 0.0 10*3/uL (0.0-0.2) CMP 11/19/2018 [facility] Sodium 141 mmol/L (136-145) 113 PRIYA ANDREWS [...] <SEE NOTE> 1 Hemoglobin A1c 11/19/2018 [facility] Hemoglobin A1c @ 6.9 % High (4.0- 6.0) 2 113 [facility] (732)- - Est Average Glucose 151 mg/dL Lipid 11/19/2018 [facility] Cholesterol @ 151 mg/dL (0-200) 113 [facility] (603)- - Triglyceride @ 151 mg/dL (30-200) HDL Cholesterol @ 44 mg/dL (>40) 3 Chol/HDL Ratio 3.4 RATIO 4 LDL Chol (Calc) 77 mg/dL (<130) 5 Laboratory 11/19/2018 [facility] TSH,Ultrasensitive @ 6.740 High (0.360 -4.170) test finding 113 [employer] JULIANA mIU/L (605)- - Free Thyroxine @ 1.17 ng/dL (0.76-1.46) Iron Panel 11/19/2018 [facility] Iron,Total @ 43 g/dL (35-150) 113 [facility] (603)- - Uibc @ 318 g/dL (130-375) Tibc @ 361 g/dL (250-450) % Saturation 12 % (12-50) Laboratory test 11/19/2018 [facility] 25 Hydroxy 37 ng/mL (31-100) 6 finding 113 [facility] Vit D @ (607)- - Blood Culture 07/23/2018 [facility] Blood Culture NO GROWTH: 7, 8 Aerobic FINAL <SEE NOTE> Blood Culture Anaerobic NO GROWTH: FINAL <SEE NOTE> 9 Lactic Acid 07/23/2018 [facility] Lactic Acid 1.7 mmol/L Normal 0.4-1.9 Lab Reflex >2.0 for Sepsis? Y CBS W/Automated Diff 07/23/2018 [facility] White Blood Count 8.6 K/uL Normal 3.1-10.7 [...] 40.4-72.8 Lymph % 14.3 % Low 20.0-42.0 [place] % 4.1 % Low 4.3-13.2 Eo% 1.5 % Normal 0.0-6.6 Bas% 0.5 % Normal 0.0-1.1 Immature Grans 0.3 % Normal 0.0-5.0 NRBC % 0.0 /100WBC < 10/ 100 WBC Neut# 6.82 K/uL Normal 1.8-7.0 Lymph # 1.23 K/uL Normal 1.0-4.0 [place] # 0.35 K/uL Normal 0.3-0.9 Eos # 0.13 K/uL Normal 0.0-0.5 Baso # 0.04 K/uL Normal 0.0-0.1 Immature Grans Absolute 0.03 K/uL NRBC # 0.00 K/uL Blood Culture 07/23/2018 [facility] Blood Culture Aerobic NO GROWTH: FINAL < SEE 10 NOTE> Blood Culture Anaerobic NO GROWTH: FINAL <SEE NOTE> 11 Urinalysis With Microscopic 07/23/2018 [facility] Urine Color YELLOW Yellow Urine Clarity SL CLOUDY Clear Urine Glucose - Dipstick NEGATIVE mg/dL Negative Urine Bilirubin - Dipstick NEGATIVE Negative Urine Ketone TRACE mg/dL High Negative Urine Specific [place] 1.025 Normal 1.010-1.030 Urine Blood NEGATIVE Negative [...] Source: URINE, CLEAN CAT <SEE NOTE> 13 Protime 06/30/2018 [facility] Protime 13.6 seconds Normal 12.0-14.4 14 Inr 1.0 Normal 0.9-1.1 15 CBC 06/30/2018 [facility] White Blood Count 7.0 K/uL Normal 3.1-10.7 Red Blood Count 4.33 M/uL Normal 3.90-5.40 Hemoglobin 11.7 gm/dL Normal 11.6-15.8 Hematocrit 37.1 % Normal 36.0-46.1 Mean Cell Volume 85.7 fl Normal 80.9-99.0 Mean Corpuscular HGB 27.0 pg Normal 25.9-32.7 Mean Corpuscular HGB Conc 31.5 g/dL Normal 30.8-34.3 Platelet Count 191 K/uL Normal 155-360 Red Cell Distri Width SD 43.6 fl Normal 36-47 Red Cell Distri Width %CV 14.0 % Normal 11.7-14.4 Mean Platelet Volume 12.0 fl Normal 8.9-12.4 NRBC % 0.0 /100WBC < 10/ 100 WBC Laboratory test 06/30/2018 [facility] Thyroid Stim 3.38 uIU/mL Normal 0.30- 4.20 finding Hormone 1 NORMAL KIDNEY FUNCTION OR MILD DISEASE - GFR >OR= 60 CHRONIC KIDNEY DISEASE - GFR 15 - 59 RENAL FAILURE - GFR <15 Est. GFR calculation based on the MDRD study equation, which assumes a steady state for creatinine. Est. GFR should not be used for medication dosing. 2 Performed using Pro Breath MD immunoassay. Care must be taken when interpreting [...] POSSIBLE UROGENITAL CONTAMINATION. 13 URINE, CLEAN CATCH 14 POSS BLOOD CLOT 15 THERAPEUTIC INR RANGE: 2.0 - 3.0 DVT, Pulmonary embolus, prophylaxis against venous thrombosis or systemic embolization in high risk patients. 2.5 - 3.5 Mechanical heart valves Procedures Date Code Description Status 10/09/2018 09191 Spirometry Completed 10/09/2018 75730 Tympanometry Completed 10/02/2018 20634 Spirometry Completed 10/02/2018 87105 Tympanometry Completed 08/12/2018 97459 Spirometry Completed 08/12/2018 65442 Tympanometry Completed 07/24/2018 28184 Spirometry Completed 07/24/2018 02578 Tympanometry Completed 07/10/2018 27139 Spirometry Completed 07/10/2018 08543 Tympanometry Completed Medical Devices Description No Information Available Encounters Type Date Location Provider Dx Diagnosis Office Visit 12/18/2018 [place] [facility] Supa Tellez E11.65 Type 2 diabetes 10:45a M.DVarun mellitus with hyperglycemia E78.2 Mixed hyperlipidemia E03.9 [...] gait and mobility Office Visit 11/19/2018 10:15a [place] [facility] Supa Tellez E11.65 Type 2 diabetes [...] of left foot Office Visit 10/09/2018 10:30a [place] [facility] GeoffSupa garcia E11.65 Type 2 diabetes [...] of left foot Office Visit 10/02/2018 8:45a [place] [facility] GeoffSupa garcia E11.65 Type 2 diabetes [...] of left foot Office Visit 08/12/2018 8:30a [facility] E11.65 Type 2 diabetes Flaca Arizmendi. mellitus with hyperglycemia E78.2 Mixed hyperlipidemia E03.9 [...] R09.81 Nasal congestion Office Visit 07/24/2018 10:15a [facility] E11.65 Type 2 diabetes Flaca Arizmendi. mellitus with hyperglycemia E78.2 Mixed hyperlipidemia E03.9 [...] R09.81 Nasal congestion Office Visit 07/10/2018 4:45p [place] Supa Tellez E11.65 Type 2 diabetes [...] R05 Cough R09.81 Nasal congestion Office Visit 07/01/2018 3:30p [place] [place] [facility] Geoff, Arnoldulises E11.65 Type 2 diabetes Simona Arizmendi mellitus [...] w/o status migrainosus D69.2 Other nonthrombocytopenic purpura Office Visit 06/19/2018 11:15a [place] [place] [facility] Geoff, Arnoldulises E11.65 Type 2 diabetes Simona Arizmendi mellitus [...] w/o aura, not intractable, w/o status migrainosus Assessments Date Code Description Provider 12/18/2018 E11.65 Type 2 diabetes mellitus with [...] Tellez M.D. 12/18/2018 R53.83 Other fatigue Supa eTllez M.D. 12/18/2018 M15.9 Polyosteoarthritis, unspecified Supa Tellez [...] Tellez M.D. pharyngotonsillitis 12/18/2018 H92.03 Otalgia, bilateral Supa Tellez M.D. 12/18/2018 G43.009 Migraine without aura, not [...] M.D. 11/19/2018 E55.9 Vitamin D deficiency, unspecified Supa Tellez M.D. 11/19/2018 E28.2 Polycystic ovarian syndrome Supa [...] 10/09/2018 M79.606 Pain in leg, unspecified Supa Tellez M.D. 10/09/2018 R53.83 Other fatigue Supa Tellez [...] E66.01 Morbid (severe) obesity due to excess Suap Tellez M.D. calories 10/09/2018 M54.5 Low back [...] Tellez M.D. 10/02/2018 M15.9 Polyosteoarthritis, unspecified Supa eTllez M.D. 10/02/2018 H52.13 Myopia, bilateral Supa Tellez [...] Tellez M.D. 08/12/2018 L20.9 Atopic dermatitis, unspecified Supa Tellez M.D. 08/12/2018 E55.9 Vitamin D deficiency, unspecified [...] Supa Tellez M.D. 08/12/2018 R09.81 Nasal congestion Suap Tellez M.D. 07/24/2018 E11.65 Type 2 diabetes [...] Tellez M.D. 07/24/2018 B00.2 Herpesviral gingivostomatitis and GeoffSupa garcia M.D. pharyngotonsillitis 07/24/2018 H92.03 Otalgia, bilateral Supa [...] Tellez M.D. 07/10/2018 L20.9 Atopic dermatitis, unspecified Geoff, Ahmad M., M.D. 07/10/2018 E55.9 Vitamin D deficiency, unspecified [...] 07/10/2018 R09.81 Nasal congestion Supa Tellez M.D. 07/01/2018 E11.65 Type 2 diabetes mellitus with hyperglycemia Supa Tellez M.D. 07/01/2018 E78.2 Mixed hyperlipidemia Supa Tellez M.D. 07/01/2018 E03.9 Hypothyroidism, unspecified Supa Tellez M.D. 07/01/2018 G47.00 Insomnia, unspecified Supa Tellez M.D. 07/01/2018 D50.9 Iron deficiency anemia, unspecified Supa Tellez M.D. 07/01/2018 F41.9 Anxiety disorder, unspecified Supa Tellez M.D. 07/01/2018 J30.9 Allergic rhinitis, unspecified Supa Tellez M.D. 07/01/2018 L20.9 Atopic dermatitis, unspecified Supa Tellez M.D. 07/01/2018 E55.9 Vitamin D deficiency, unspecified Supa Tellez M.D. 07/01/2018 E28.2 Polycystic ovarian syndrome Supa Tellez M.D. 07/01/2018 R60.0 Localized edema Supa Tellez M.D. 07/01/2018 I87.2 Venous insufficiency (chronic) (peripheral) Supa Tellez M.D. 07/01/2018 M79.606 Pain in leg, unspecified Supa Tellez M.D. 07/01/2018 R53.83 Other fatigue Supa Tellez M.D. 07/01/2018 M15.9 Polyosteoarthritis, unspecified Supa Tellez M.D. 07/01/2018 H52.13 Myopia, bilateral Supa Tellez M.D. 07/01/2018 F33.9 Major depressive disorder, recurrent, Supa Tellez M.D. unspecified 07/01/2018 N92.0 Excessive and frequent menstruation with Supa Tellez M.D. regular cycle 07/01/2018 N85.00 Endometrial hyperplasia, unspecified Supa Tellez M.D. 07/01/2018 J45.909 Unspecified asthma, uncomplicated Supa Tellez M.D. 07/01/2018 K31.84 Gastroparesis Supa Tellez M.D. 07/01/2018 R56.9 Unspecified convulsions Supa Tellez M.D. 07/01/2018 E66.01 Morbid (severe) obesity due to excess Supa Tellez M.D. calories 07/01/2018 M54.5 Low back pain Supa Tellez M.D. 07/01/2018 N39.8 Other specified disorders of urinary system Supa Tellez M.D. 07/01/2018 B00.2 Herpesviral gingivostomatitis and Supa Tellez M.D. pharyngotonsillitis 07/01/2018 H92.03 Otalgia, bilateral Supa Tellez M.D. 07/01/2018 G43.009 Migraine without aura, not intractable, Supa Tellez M.D. without status migra 07/01/2018 D69.2 Other nonthrombocytopenic purpura Supa Tellez M.D. 06/19/2018 E11.65 Type 2 diabetes mellitus with hyperglycemia Supa Tellez M.D. 06/19/2018 E78.2 Mixed hyperlipidemia Supa Tellez M.D. 06/19/2018 E03.9 Hypothyroidism, unspecified Supa Tellez M.D. 06/19/2018 G47.00 Insomnia, unspecified Supa Tellez M.D. 06/19/2018 D50.9 Iron deficiency anemia, unspecified Supa Tellez M.D. 06/19/2018 F41.9 Anxiety disorder, unspecified Supa Tellez M.D. 06/19/2018 J30.9 Allergic rhinitis, unspecified Supa Tellez M.D. 06/19/2018 L20.9 Atopic dermatitis, unspecified Supa Tellez M.D. 06/19/2018 E55.9 Vitamin D deficiency, unspecified Supa Tellez M.D. 06/19/2018 E28.2 Polycystic ovarian syndrome Supa Tellez M.D. 06/19/2018 R60.0 Localized edema Supa Tellez M.D. 06/19/2018 I87.2 Venous insufficiency (chronic) (peripheral) Supa Tellez M.D. 06/19/2018 M79.606 Pain in leg, unspecified Supa Tellez M.D. 06/19/2018 R53.83 Other fatigue Supa Tellez M.D. 06/19/2018 M15.9 Polyosteoarthritis, unspecified Supa Tellez M.D. 06/19/2018 H52.13 Myopia, bilateral Supa Tellez M.D. 06/19/2018 F33.9 Major depressive disorder, recurrent, Supa Tellez M.D. unspecified 06/19/2018 N92.0 Excessive and frequent menstruation with Supa Tellez M.D. regular cycle 06/19/2018 N85.00 Endometrial hyperplasia, unspecified Supa Tellez M.D. 06/19/2018 J45.909 Unspecified asthma, uncomplicated Supa Tellez M.D. 06/19/2018 K31.84 Gastroparesis Supa Tellez M.D. 06/19/2018 R56.9 Unspecified convulsions Supa Tellez M.D. 06/19/2018 E66.01 Morbid (severe) obesity due to excess Supa Tellez M.D. calories 06/19/2018 M54.5 Low back pain Supa Tellez M.D. 06/19/2018 N39.8 Other specified disorders of urinary system Supa Tellez M.D. 06/19/2018 B00.2 Herpesviral gingivostomatitis and Supa Tellez M.D. pharyngotonsillitis 06/19/2018 H92.03 Otalgia, bilateral Supa Tellez M.D. 06/19/2018 G43.009 Migraine without aura, not intractable, Supa Tellez M.D. without status migra Plan of Treatment 12/18/2018 - Supa Tellez M.D.E11.65 Type 2 diabetes mellitus with hyperglycemiaComments:DIET REVIEWED CONTINUE DIETWT LOSSFS qAC AND HS PRN F/U FBWFollow up:2 weeks.E78.2 Mixed hyperlipidemiaComments:DIET REVIEWED CONTINUE DIETWT LOSSF/U LAB FBWE03.9 Hypothyroidism, unspecifiedComments:RX REVIEWED AND UPDATEDF/U TSH/ FT4G47.00 Insomnia, unspecifiedComments:COUNCELLING AND REASSURANCE RELAXATION TECHNIQUES DISCUSSED COUNSELED RE: STRESSORS IN LIFE TYLENOLPM OR MOTRIN PM PRN DUR SPXQIBNY91.9 Iron deficiency anemia, unspecifiedComments:DIET SPPLEMENTIRON SUPPLEMENT NEEDEDF/U LABF41.9 Anxiety disorder, unspecifiedComments:COUNCELLING AND REASSURANCE RELAXATION TECHNIQUES DISCUSSEDCOUNSELED RE: STRESSORS IN LIFE AVOID ALL ENERGY/HIGH CAFFEINE TPBBKGW33.9 Allergic rhinitis, unspecifiedComments:INCREASE PO FLUID USE ANTIHISTAMINE PRN SECOND HAND SMOKING OONPJOFWPK00.9 Atopic dermatitis, unspecifiedComments:SKIN CARE INSTRUCTIONS LOTION OR BABY OIL 2-3 APPLICATION PER DAYUSE MOISTURIZING SOAPAVOID PROLONGED WATER EXPOSUREAVOID USING HOT WATER IN CTIVTUQ46.9 Vitamin D deficiency, unspecifiedComments:INCREASE EXPOSURE TO SUNREVIEW OF DIETE28.2 Polycystic ovarian syndromeComments:F/U WITH OB/GYNR60.0 Localized edemaComments:ELEVATE LE PRNELASTIC STOCKING / MAURICE WRAP PRNF/U LAB AVLZORA43.2 Venous insufficiency (chronic) (peripheral)Comments:ELEVATE LEPRESSURE STOCKINGWT LOSS NEEDED F/U LABM79.606 Pain in leg, unspecifiedComments:TYLENOL OR MOTRIN PRN EXERCISE/HEAT/WGFAPBQU07.83 Other fatigueComments:INCRFEASE PO FLUIDCOUNCELLING AND REASSURANCE RESTM15.9 Polyosteoarthritis, unspecifiedComments:EXERCISE/HEAT/MESSAGETYLENOL OR MOTRIN PRNAVOID HEAVY LIFTINGWT LOSSH52.13 Myopia, bilateralComments:USE GLASSES/ CONTACTSF/U WITH FNUCWAXGCXJQZD92.9 Major depressive disorder, recurrent, unspecifiedComments:COUNCELLING AND REASSURANCE RELAXATION TECHNIQUES DISCUSSED COUNSELED RE: STRESSORS IN LIFEN92.0 Excessive and frequent menstruation with regular cycleComments:OBSERVEF/U WITH RETAIL DEPARTMENT MANAGER PRNN85.00 Endometrial hyperplasia, unspecifiedComments:F/U WITH OB/GYNJ45.909 Unspecified asthma, uncomplicatedComments:MDI / NEBULIZER TX PRN AVOID EXPOSURE TO SMOKING OR ZTTICV02.84 GastroparesisComments:CONTINUE BDUQGGZGYAOM77.9 Unspecified convulsionsComments:F/U WITH NEUROLOGY PRNSAFETY DHOARHD66.01 Morbid (severe) obesity due to excess caloriesComments:WT LOSS COUNCELLINGEXERCISEDIET COUNCILLING EXTENSIVE TEACHING ON SURGICAL TX INSYERPD56.5 Low back painComments:EXERCISE/HEAT /MESSAGEAVOID HEAVY LIFTING WT LOSSTYLENOL OR MOTRIN PRNN39.8 Other specified disorders of urinary systemComments:OBSERVEINCREASE PO YONGQA38.2 Herpesviral gingivostomatitis and pharyngotonsillitisComments: LAYBHOKQIXVOT96.03 Otalgia, bilateralComments:INCREASE PO FLUIDTYLENOL OR MOTRIN PRNANTIHISTAMINE JEGZEYMQ98.009 Migraine without aura, not intractable, without status migrainosusComments:TYLENOL OR MOTRIN PRNRELAXATION/AVOID FGKHMJOOCN12.9 Acute bronchitis, unspecifiedComments:LMNJDJGCG66.40 Acute pansinusitis, unspecifiedComments:SOWZBLKGU54.93 Otitis media, unspecified, bilateralComments:ZJUHXKFDP24.02 Shortness of breathComments:INCREASE PO RJPSGEOCWF03 CoughComments:INCREASE CLEAR LIQUIDSSTEAMGARGLE WARM SALT H2O TID ROBITUSSIN DM PRNR09.81 Nasal congestionComments:INCREASE PO FLUIDTYLENOL OR MOTRIN PRNREST USE ANTIHISTAMINE PRNM25.572 Pain in left ankle and joints of left footComments:EXERCISE/HEAT/MESSAGETYLENOL OR MOTRIN PRNACE WRAP PRN USE SHOES INSERTS/ ZSGJXYFJ27.89 Other abnormalities of gait and mobilityNew Medication:Walker Cochran Wheels/5 Adjustment Holes/-04/01" -" - use as directed( walker with wheels,brakes and basket) dx: r26.89 need to be able to suppoet 500 lbComments:SAFETY CLEAR PATH @ HOMEAVOID USE OF LOOSE RUGSUSE CANE / WALKER NEEDEDPROVIDE ADEQUATE LIGHT @ HOMEUSE WELL FITTED SHOESCONSIDER USE OF REMOTE CALLING DEVICEARRANGE FOR REGURAL CHECK UP BY FAMILY ORFRIENDS USE ROLLING WALKER Functional Status Functional Condition Comment Date Status Glasses Active Mental Status Description No Information Available Referrals Refer to Reason for Referral Status Appt Date Ricco Cardona Sent [address] [place] [address] [address] [place] [id number] [phone]
--- OUTSIDE RECORDS SUMMARY | 2019-02-03 21:44 | XMS REPORT | Continuity of Care Document ---
:1990 External Reference #:[id number] Demographics Address [address] [place] [address] Home Phone [phone] Mobile Phone [phone] Preferred Language en Marital Status Not or Sikh Affiliation Unknown Race White Ethnic Group Not or Author Name Manav Naranjo M.D. 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 Problems Description No Information Available Social History Type Date Description Comments Sex Unknown Tobacco Use Start: Unknown End: Unknown Former Cigarette Smoker ETOH Use Rare Use Of Alcohol Recreational Drug Use Denies Drug Use Allergies, Adverse Reactions, Alerts Description No Known Drug Allergies Medications Active Medications SIG Qnty Indications Ordering Provider Date Albuterol 2 Puffs qid prn 17gm Unknown 90mcg/Act Aerosol Levothroid Unknown 175mcg Tablets Singulair 1 po qd 90tabs Unknown 10mg Tablets Furosemide Unknown 20mg Tablets Metformin Unknown Calcium + D Unknown Immunizations Description No Information Available Vital Signs Date Vital Result Comment 12/29/2018 8:27am Weight 504.00 lb Height 65.5 inches 5'5.50" BMI (Body Mass Index) 82.6 kg/m2 BP Systolic 184 mmHg BP Diastolic 78 mmHg Heart Rate 86 /min O2 % BldC Oximetry 94 % Body Temperature 96.7 F Aurora Score 8 Pain Level 0 11/07/2016 7:46am Weight 470.00 lb Height 65.5 inches 5'5.50" BMI (Body Mass Index) 77.0 kg/m2 BP Systolic 158 mmHg BP Diastolic 86 mmHg Heart Rate 91 /min O2 % BldC Oximetry 95 % Body Temperature 98.1 F Aurora Score 8 Pain Level 0 Results Description No Information Available Procedures Date Code Description Status 06/10/2015 727477619 Bone Mineral Density Test Completed 06/10/2015 841929574 Diabetic Retinal Eye Exam Completed 06/10/2015 [id number] Diabetic Foot Exam Completed Medical Devices Description No Information Available Encounters Description No Information Available Assessments Description No Information Available Plan of Treatment No Information Available Functional Status Description No Information Available Mental Status Description No Information Available Referrals Description No Information Available
--- OUTSIDE RECORDS SUMMARY | 2019-02-03 21:44 | XMS REPORT | Continuity of Care Document ---
:1990 External Reference #:[id number] Demographics Address [address] [place] [address] Home Phone [phone] Mobile Phone [phone] Preferred Language en Marital Status Not or Temple Affiliation Unknown Race White Ethnic Group Not or Author Name Manav Naranjo M.D. 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 Problems Description No Information Available Social [...] Oximetry 94 % Body Temperature 96.7 F [place] Score 8 Pain Level 0 11/07/2016 7:46am Weight 470.00 lb Height 65.5 inches 5'5.50" BMI (Body Mass Index) 77.0 kg/m2 BP Systolic 158 mmHg BP Diastolic 86 mmHg Heart Rate 91 /min O2 % BldC Oximetry 95 % Body Temperature 98.1 F [place] Score 8 Pain Level 0 Results Description No Information Available Procedures Date Code Description Status 12/29/2018 23680 Tympanometry Completed 06/10/2015 [id number] Bone Mineral Density Test Completed 06/10/2015 [id number] Diabetic Retinal Eye Exam Completed 06/10/2015 [id number] Diabetic Foot Exam Completed Medical Devices Description No Information Available Encounters Description No Information Available Assessments Description No Information Available Plan of Treatment No Information Available Functional Status Description No Information Available Mental Status Description No Information Available Referrals Description No Information Available
[2019-02-03 21:53] VITALS: BP 169/101
== END 2019-02-03 22:02 | disposition home health service (06) ==
LOC: UCEAST 21:35
DX: M79.661 Pain in right lower leg (principal); M79.89 Other specified soft tissue disorders; E11.9 Type 2 diabetes mellitus without complications; J45.909 Unspecified asthma, uncomplicated; Z91.09 Other allergy status, other than to drugs and biological substances
CPT/HCPCS: 99212; G0463

== ENCOUNTER 2019-02-03 22:17 | Emergency (ER) | payer OTHER ==
[2019-02-04] MEDS ORDERED: Cephalexin CAP* 500 MG PO ONE (00:49)
--- NOTE | 2019-02-04 00:51 | ED ---
Lower Extremity - HPI Summary HPI Summary: Patient is a 28 y/o F presenting to the ED for a chief complaint of rash in the right LE that began one week ago. Patient reports pain in the right LE that is described as a burning sensation. Patient also states the right LE was swollen and warm to the touch. Patient denies nausea, vomiting, or fever. Patient was previously seen at [facility] and sent to the ED for a possible blood clot in the right leg. Patient has a PSHx of ear tube surgery and cholecystectomy. Patient denies tobacco, alcohol, or drug use. Allergies noted. Medications reviewed. - History of Current Complaint Chief Complaint: EDExtremityLower Stated Complaint: POSS BLOOD CLOT PER PT Time Seen by Provider: 02/04/19 00:37 Hx Obtained From: Patient Hx Last Menstrual Period: 10/20/18 Mechanism Of Injury: Other - None Onset of Pain: Immediate Onset/Duration: Still Present Severity Initially: Mild Severity Currently: Mild Pain Intensity: 0 Pain Scale Used: 0-10 Numeric Timing: Constant, Lasting Days Associated Signs And Symptoms: Positive: Swelling - Right LE, Other - Positive warmth and rash in right LE. Negative: Fever Aggravating Factor(s): Nothing Alleviating Factor(s): Nothing Able to Bear Weight: Yes - Allergies/Home Medications Allergies/Adverse Reactions: Allergies Allergy/AdvReac Type Severity Reaction Status Date / Time seasonal Allergy Eyes Uncoded 02/03/19 22:20 Itchy/Swollen/Red/Watery PMH/Surg Hx/FS Hx/Imm Hx Previously Healthy: Yes Endocrine/Hematology History: Reports: Hx Diabetes, Hx Thyroid Disease Cardiovascular History: Reports: Hx Hypertension Denies: Hx Hypercholesterolemia Respiratory History: Reports: Hx Asthma, Hx Sleep Apnea Denies: Hx Chronic Obstructive Pulmonary Disease (COPD) GI History: Reports: Hx Gall Bladder Disease Denies: Hx Ulcer Sensory History: Denies: Hx Legally Blind, Hx Deafness Opthamlomology History: Denies: Hx Legally Blind EENT History: Denies: Hx Deafness Neurological History: Reports: Hx Seizures Psychiatric History: Reports: Hx Depression - Bipolar, Hx Community Mental Health Tx - Surgical History Surgical History: Yes Surgery Procedure, Year, and Place: PE Tubes as a child and 07/2015. [place] [facility] [place] Infectious Disease History: No Infectious Disease History: Denies: Hx Hepatitis, Hx Human Immunodeficiency Virus (HIV), History Other Infectious Disease, Traveled Outside the [place] in Last 30 Days - Family History Known Family History: Negative: Cardiac Disease - Social History Occupation: Unemployed Lives: With Family Alcohol Use: None Hx Substance Use: No Substance Use Type: Reports: None Hx Tobacco Use: No Smoking Status (MU): Never Smoked Tobacco Review of Systems - ROS Summary Review of Systems Summary: Albuterol 2.5MG/3ML (0.083%)* [Ventolin 2.5 MG/3 ML NEB.JELENA*] 2.5 mg NEB Q6H PRN 08/23/13 [History Confirmed 02/03/19] Albuterol HFA INHALER* [Ventolin HFA Inhaler*] 1 - 2 puff INH Q4H PRN 08/23/13 [ History Confirmed 02/03/19] Furosemide TAB* [Lasix TAB*] 40 mg PO QAM 08/23/13 [History Confirmed 02/03/19] Levothyroxine TAB* [Synthroid 75 MCG TAB*] 125 mcg PO QAM 08/23/13 [History Confirmed 02/03/19] metFORMIN* [Glucophage 500 MG TAB *] 750 mg PO TID 08/23/13 [History Confirmed 02/03/19] Levothyroxine TAB* [Synthroid 75 MCG TAB*] 75 mcg PO DAILY 12/25/14 [History Confirmed 02/03/19] Desvenlafaxine (NF) [Pristiq (NF)] 50 mg PO BEDTIME 05/20/16 [History Confirmed 02/03/19] traZODone TAB* [Desyrel TAB*] 100 mg PO BEDTIME 02/11/18 [History Confirmed 03/12] Cephalexin CAP* [Keflex CAP*] 500 mg PO TID #30 cap 02/04/19 [Rx] Negative: Fever Negative: Vomiting, Nausea Positive: Myalgia - Right LE, Edema - Right LE Positive: Rash - Right LE, Other - Positive warm to touch in right LE All Other Systems Reviewed And Are Negative: Yes Physical Exam - Summary Physical Exam Summary: General: Well-developed, Well-nourished FEMALE. No acute distress. HEENT: Normocephalic, Atraumatic. Eyes: Conjuctiva normal, PERRL. Ears: TMs within normal limits. Nares: (-) discharge, (-) erythema. Oropharynx: Clear, mucous membranes moist, (-) exudates. Neck: Soft, FROM, (-) lymphadenopathy, (-) thyromegaly, (-) JVD. Cardiovascular: Normal sinus rhythm, (-) murmur. Lungs: Clear to auscultation bilaterally (-) wheezes, (-) rales, (-) rhonchi. Abdomen: Soft, non-tender, non-distended, (-) organomegaly, normal bowel sounds. Back: (-) CVA tenderness Extremities: No edema. Right lower leg has 5 by 4 erythema with mild warmth, no significant tenderness, normal capillary refill distally. Skin: Warm, dry, (-) rash. Neuro: Alert and oriented x3, no focal deficits. Psychiatric: Mood normal, affect normal. Triage Information Reviewed: Yes Vital Signs On Initial Exam: Initial Vitals Temp Pulse Resp BP Pulse Ox 97.1 F 85 16 166/108 97 02/03/19 22:18 02/03/19 22:18 02/03/19 22:18 02/03/19 22:18 02/03/19 22:18 Vital Signs Reviewed: Yes Procedures - Sedation Patient Received Moderate/Deep Sedation with Procedure: No Diagnostics - Vital Signs Vital Signs Temp Pulse Resp BP Pulse Ox 02/03/19 22:18 97.1 F 85 16 166/108 97 - Laboratory Lab Statement: Any lab studies that have been ordered have been reviewed, and results considered in the medical decision making process. - Radiology Venous Doppler Study Radiology Interpretation Completed By: Radiologist Summary of Radiographic Findings: Venous Doppler Study IMPRESSION: Negative right lower extremity venous duplex exam without evidence of deep venous thrombosis. Reviewed by Dr. Bradford. Lower Extremity Course/Dx - Course Course Of Treatment: 28-year-old female with complaints of erythema and warmth, swelling to the right lower leg. [facility] here for duplex.ultrasound negative for DVT. Patient treated for cellulitis with Keflex. Advised elevation. Follow-up with PCP for recheck. Follow-up sooner for any worsening symptoms. - Diagnoses Provider Diagnoses: Cellulitis Discharge ED - Sign-Out/Discharge Documenting (check all that apply): Patient Departure - Discharge - Discharge Plan Condition: Stable Disposition: HOME Prescriptions: Cephalexin CAP* [Keflex CAP*] 500 mg PO TID #30 cap Patient Education Materials: Cellulitis (ED) Referrals: Supa Tellez MD [Primary Care Provider] - Additional Instructions: Please follow up with your primary care physician within three days. Please return to ED for any new or worsening symptoms. - Billing Disposition and Condition Condition: STABLE Disposition: Home - Attestation Statements Document Initiated by Scribe: Yes Documenting Scribe: Dulce Quintanilla Provider For Whom Scribe is Documenting (Include Credential): Natalie Bradford MD Scribe Attestation: Dulce Richards, scribed for Natalie Bradford MD on 02/04/19 at 0125. Scribe Documentation Reviewed: Yes Provider Attestation: The documentation as recorded by the Dulce leger accurately reflects the service I personally performed and the decisions made by Natalie laurent MD Status of Scribe Document: Viewed
[2019-02-04 00:59] VITALS: BP 126/84
== END 2019-02-04 01:00 | disposition home or self-care (01) ==
LOC: ED 22:17
DX: L03.90 Cellulitis, unspecified (principal); R21 Rash and other nonspecific skin eruption; R60.9 Edema, unspecified; E11.9 Type 2 diabetes mellitus without complications; E03.9 Hypothyroidism, unspecified; I10 Essential (primary) hypertension; F32.9 Major depressive disorder, single episode, unspecified
CPT/HCPCS: 99282; A9270-GY

== ENCOUNTER 2019-12-16 07:30 | Inpatient (IN) ==
[~2019-12-16 07:30] MED LIST: Buffered Lidocaine 1% SYRIN 1 ml INTRADERM ONE; Lactated Ringers 1000 ml BAG 1,000 ML IV SCH
[2019-12-16] MEDS ORDERED: Heparin 5000 UNITS/ML 1 mL VIAL ONE (11:39)
[2019-12-16] MEDS ORDERED: ceFAZolin 2 GM PREMIX 2 GM/50 ML BAG ONE (11:40)
[2019-12-16] MEDS ORDERED: ceFAZolin 1 GM ADVAN 1 GM ADDV.VIAL IVPB ONE (11:40)
[2019-12-16] MEDS ORDERED: Buffered Lidocaine 1% SYRIN 1 ml INTRADERM ONE (11:40)
[2019-12-16] MEDS ORDERED: Propofol 10 MG/ML 20 ML BTL ONE (12:07)
[2019-12-16] MEDS ORDERED: Midazolam 5 mg/5 ml VIAL 1 mg/ml 5 ml VIAL (5 mg) ONE (12:07)
[2019-12-16] MEDS ORDERED: Lidocaine 2% PF 5 ML VIAL ONE (12:07)
[2019-12-16] MEDS ORDERED: Dexamethasone IV 4 MG/ML VIAL 1 ml VIAL ONE (12:07)
[2019-12-16] MEDS ORDERED: Ondansetron 4 mg VIAL 2 MG/ML 2 ml VIAL ONE ×2 (12:07→19:04)
[2019-12-16] MEDS ORDERED: Ketamine HCL 50 mg/ml 10 ml VIAL (500 MG) ONE (12:08)
[2019-12-16] MEDS ORDERED: Rocuronium 50 mg VIAL 10 mg/ml 5 ml VIAL (50 mg) ONE ×2 (12:08→15:45)
[2019-12-16] MEDS ORDERED: fentaNYL 250 mcg/5 ml 50 MCG/ML 5 ml VIAL (250 MCG) ONE (12:08)
[2019-12-16] MEDS ORDERED: Methylene Blue 0.5 % 50 MG/10 ML AMP IV ONE (13:48)
[2019-12-16] MEDS ORDERED: Lidocaine 1% w EPI 1:100,000 MDV 20 ML VIAL ONE (13:48)
[2019-12-16] MEDS ORDERED: Bupivacaine 0.25% SDV 30 ML ONE ×2 (13:50→15:33)
[2019-12-16] MEDS ORDERED: fentaNYL 100 mcg/2 ml 50 MCG/ML VIAL ONE ×2 (16:56→19:04)
[2019-12-16] MEDS ORDERED: Acetaminophen IV 1 GM/100ML 100 ML ONE (17:01)
[2019-12-16] MEDS ORDERED: HYDROcodone/ACET. 7.5/325 LIQ 15 ML UDC PO PRN (18:51)
[2019-12-16] MEDS ORDERED: HYDROmorphone 1 MG/1 ML SYRINGE IV SLOW PU PRN (18:51)
[2019-12-16] MEDS ORDERED: diPHENhydraMINE IV 50 MG/ML 1 ml VIAL (BENADRYL) SLOW PUSH PRN (18:51)
[2019-12-16] MEDS ORDERED: HYDROmorphone 0.5 MG/0.5 ML SYRINGE IV SLOW PU PRN (18:51)
[2019-12-16] MEDS ORDERED: Naloxone 0.4 mg VIAL 0.4 mg/ml 1 ml VIAL IV PRN (18:53)
[2019-12-16] MEDS ORDERED: fentaNYL 100 mcg/2 ml 50 MCG/ML VIAL IV PRN (18:53)
[2019-12-16] MEDS ORDERED: HYDROmorphone 1 MG/1 ML SYRINGE IV PRN (18:53)
[2019-12-16] MEDS ORDERED: Ondansetron 4 mg VIAL 2 MG/ML 2 ml VIAL IV PRN (18:53)
[2019-12-16] MEDS ORDERED: DiMENhydriNATE IV 50 mg/ml 1 ml VIAL IV PUSH PRN (18:53)
[2019-12-16] MEDS ORDERED: Albuterol 2.5mg/3 ml (0.083%) NEB.SOLN INH PRN (18:58)
[2019-12-16] MEDS ORDERED: Albuterol HFA INHALER 8 gm MDI INH PRN (18:58)
[2019-12-16] MEDS ORDERED: Lactated Ringers 1000 ml BAG 1,000 ML IV ONE (19:02)
[2019-12-16] MEDS: Lactated Ringers 1000 ml BAG 1,000 ML IV SCH (21:46)
[2019-12-16] MEDS: Heparin 5000 UNITS/ML 1 mL VIAL SUBCUT SCH (22:43)
[2019-12-16] MEDS: Famotidine IV 10 MG/ML 2 ml VIAL (20 mg) IV SLOW PU SCH (22:44)
[2019-12-17 01:50] LABS: Urine Appearance Turbid; Urine Bilirubin Negative (Negative); Urine Blood Negative (Negative); Urine Color Yellow; Urine Glucose Negative (Negative); Urine Ketones 2+ (Negative); Urine Nitrite Negative (Negative); Urine Protein Negative (Negative); Urine Specific Gravity 1.028 (1.010-1.030); Urine Urobilinogen Negative (Negative)
[2019-12-17] MEDS: Ondansetron 4 mg VIAL 2 MG/ML 2 ml VIAL IV PRN ×3 (02:16→19:51)
[2019-12-17] MEDS: Lactated Ringers 1000 ml BAG 1,000 ML IV SCH ×2 (04:47→12:11)
[2019-12-17] MEDS: Levothyroxine 100 MCG/5 ML VIAL IV SCH (06:39)
[2019-12-17] MEDS: Heparin 5000 UNITS/ML 1 mL VIAL SUBCUT SCH ×3 (06:39→21:40)
[2019-12-17] MEDS: Famotidine IV 10 MG/ML 2 ml VIAL (20 mg) IV SLOW PU SCH ×2 (09:25→21:40)
[2019-12-17 09:38] LABS: Hematocrit 35 % (35-47); Hemoglobin 11.6 g/dL (12.0-16.0); Mean Corpuscular HGB Conc 33 g/dL (31-36); Mean Corpuscular Hemoglobin 27 pg (27-31); Mean Corpuscular Volume 81 fL (80-97); Mean Platelet Volume 9.9 fL (7.4-10.4); Platelet Count 202 10^3/uL (150-450); Red Blood Count 4.36 10^6 /uL (3.70-4.87); Red Cell Distribution Width 15 % (10-15); White Blood Count 10.7 10^3/uL (3.5-10.8)
[2019-12-17 09:56] LABS: BUN/Creatinine Ratio 14.5 (8-20); Calcium 9.1 mg/dL (8.6-10.3); EGFR Non-African American 80.2 (>60); Potassium 4.1 mmol/L (3.5-5.0)
[2019-12-17] MEDS: D5W 1/2 NS KCl 20 meq 1000 ml 1,000 ML IV SCH (18:56)
[2019-12-18] MEDS: D5W 1/2 NS KCl 20 meq 1000 ml 1,000 ML IV SCH ×2 (03:03→11:54)
[2019-12-18] MEDS: Ondansetron 4 mg VIAL 2 MG/ML 2 ml VIAL IV PRN (03:03)
[2019-12-18] MEDS: Levothyroxine 100 MCG/5 ML VIAL IV SCH (05:45)
[2019-12-18] MEDS: Heparin 5000 UNITS/ML 1 mL VIAL SUBCUT SCH ×2 (05:46→14:19)
[2019-12-18] MEDS: Famotidine IV 10 MG/ML 2 ml VIAL (20 mg) IV SLOW PU SCH (09:03)
[2019-12-18 16:17] VITALS: BP 138/73
[2019-12-19] MEDS ORDERED: Scopolamine PATCH Remove NOTE PATCH OFF ONE (18:53)
== END 2019-12-18 17:37 | disposition home or self-care (01) | DRG 403 ==
LOC: AA 09:33 → SSU 21:35
PROVIDERS: ADMIT Surgery; ATTEND Surgery